=== PATIENT | female | born 1995 | race Caucasian/White ===

== ENCOUNTER 2024-12-16 12:08 | Observation (INO) | payer OTHER, SELFPAY ==
--- OUTSIDE RECORDS SUMMARY | 2024-12-16 12:25 | XMS_ITS | Clinical Summary ---
Author Organization [facility] Address [address] [place] [id number] Care Team Providers Care Regulatory Affairs Intern Name Role Phone Deanna Vasquez MD Primary Care Provider Allergies Active Allergy Reactions Criticality Noted Date Comments Diclofenac GI Upset 10/28/2018 Sumatriptan GI Upset 10/28/2018 Paroxetine Hives 10/28/2018 Tramadol GI Upset 10/28/2018 Medications vitamin 27-1 MG Tab tablet Take 1 tablet by mouth daily. Active ranitidine 150 MG tablet Take 150 mg by mouth 2 (two) times daily. 11/29/19 25 Discontinu ed(Error) Active Problems Estimated Date of Delivery Comme nts Yes 02/01/2025 No known active problems Encounters Date Type Department Care Team Description 11/28/2024 6:49 PM CDT - 11/28/2024 9:48 PM CDT Hospital Encounter [facility] [address] [facility] [place] [address] Karley Cameron MD Contractions Discharge Disposition: Home or Self Care (Routine Discharge) 11/28/2024 Travel from Last 3 Months Family History Medical History Relation Comments Lung Cancer Maternal Grandfather Breast Cancer Maternal Grandmother Cancer Mother Relation Status Comments Maternal Grandfather Maternal Grandmother Mother Social History Tobacco Use Types Packs/Day Years Used Date Smoking Tobacco: Every Day Cigarettes Smokeless Tobacco: Never Tobacco Cessation:Ready to Q uit: Not Asked; Counseling Given: Not Answered Comments:STATES THAT SHE DOESN'T SMOKE A FULL CIGARETTE A DAY Alcohol Use Standard Drinks/Week Comments No 0 (1 standard drink = 0.6 oz pur e alcohol) AUDIT-C Answer Date Recorded Frequency of Alcohol Consumption Never 10/28/2018 Average Number of Drinks Not on file 019 Frequency of Binge Drinking Not on file 10/19 Estimated Date of Delivery Comme nts Yes 02/01/2025 Sex and Gender Information Value Date Recorded Sex Assigned at Female 11/28/2024 9:52 PM CDT Legal Sex Female 9:44 AM CDT Gender Identity Not on file Sexual Orientation Not on file Last Filed Vital Signs Vital Sign Reading Time Taken Comments Blood Pressure 107/55 11/28/2024 7:13 PM CDT Pulse 63 11/28/2024 7:50 PM CDT Temperature 37.1 C (98.8 F) 11/28/2024 7:49 PM CDT Respiratory Rate 18 11/28/2024 7:48 PM CDT Oxygen Saturation 99% 11/28/2024 7:50 PM CDT Inhaled Oxygen Concentration - - Weight 53.1 kg (117 lb) 10/28/2018 3:00 AM CDT Height 162.6 cm (5' 4) 10/28/2018 3:00 AM CDT Body Mass Index 20.08 10/28/2018 3:00 AM CDT Plan of Treatment Health Maintenance Due Date Last Done Comments Cervical Cancer Screening Pap Smear (Age 21 to 29) Every 3 Years 1996 Cervical Cancer Screening 1996 Annual Physical 1999 Hepatitis C 2014 Pneumococcal Vaccine: Pediatrics (0 to 5 Years) and At-Risk Patients (6 to 49 Years) (1 of 2 - PCV) 2015 COVID-19 Vaccine ( season) 2024 DTaP, Tdap and Td Vaccines (5 - Td or Tdap) 03/12/2029 03/12/2019, 08/09/2008, 12/30/2001, Additional history exists Hepatitis B Vaccines Completed 1996, 1996, 1996 HPV Vaccines Completed 08/02/2009, 06/2008, 12/23/2008 Meningococcal Vaccine Aged Out 08/02/2009 No kady toi eligible based on patient's age to complete this topic Meningococcal B Vaccine Aged Out No l onger eligible based on patient's age to complete this topic RSV Immunization or 60+ Years (No Doses Required) Completed RSV Immunizations Under 20 Months Aged Out No longer eligible based on patient's age to complete this topic Procedures Procedure Name Priority Date/Time Associated Diagnosis Comments PLACENTAL ALPHA MICROGLOBULIN-1 STAT 11/28/2024 7:05 PM CDT Premature rupture of membranes (HHS/HCC) HC URINALYSIS AUTO W/MICRO STAT 11/28/2024 7:05 PM CDT Premature rupture of membranes (HHS/HCC) from Last 3 Months Results * PLACENTAL ALPHA MICROGLOBULIN-1 (11/28/2024 7:05 PM CDT) RUPTURE OF MEMBRANES NEGATIVE 11/28/2024 7:42 PM CDT [facility] VAGINAL STRUCTURE / Unknown 11/28/2024 7:05 PM CDT us Karley Cameron MD BODY FLUIDS AND STOOLS ORDERAB LES Final Result [facility] [address] [place] [address], * URINALYSIS (11/28/2024 7:05 PM CDT) COLOR (U) YELLOW 11/28/2024 7:30 PM CDT [facility] TRANSPARENCY CLEAR 11/28/2024 7:30 PM CDT [facility] SPECIFIC GRAVITY (U) 1.010 1.000 - 1.025 11/28/2024 7:30 PM CDT [facility] U PH 7.0 5.0 - 8.0 11/28/2024 7:30 PM CDT [facility] LEUKOCYTES (U) NEGATIVE NEGATIVE 11/28/2024 7:30 PM CDT [facility] NITRITES NEGATIVE NEGATIVE 11/28/2024 7:30 PM CDT [facility] PROTEIN RANDOM (U) NEGATIVE NEGATIVE 11/28/2024 7:30 PM CDT [facility] GLUCOSE (U) NEGATIVE NEGATIVE 11/28/2024 7:30 PM CDT [facility] KETONES MG/DL (U) NEGATIVE NEGATIVE 11/28/2024 7:30 PM CDT [facility] UROBILINOGEN 0.2 <1.0 EU/DL 11/28/2024 7:30 PM CDT [facility] BILIRUBIN (U) NEGATIVE NEGATIVE 11/28/2024 7:30 PM CDT [facility] BLOOD (U) NEGATIVE NEGATIVE 11/28/2024 7:30 PM CDT [facility] WBC/HPF 0-5 0 - 5 /HPF 11/28/2024 7:30 PM CDT [facility] RBC/HPF 0-5 0 - 5 /HPF 11/28/2024 7:30 PM CDT [facility] URINE SPECIMEN OBTAINED BY CLEAN CATCH PROCEDURE / Unknown 11/28/2024 7:05 PM CDT Karley Cameron MD URINE ORDERABLES Final Result [facility] [address] [place] [address], from Last 3 Months Insurance MEDICAID [employer] Care Teams Regulatory Affairs Intern Relationship Specialty [place] [address] [place] [address] [place] [id number] PCP - General FAMILY PRACTICE 11/28/24
--- OUTSIDE RECORDS SUMMARY | 2024-12-16 12:25 | XMS_ITS | Data Portability ---
Author Organization [facility] Address [address] [place] [address] Care Team Providers Care Field Map Technician Name Role Phone SRIRAM ROJAS Primary Care Provider [phone] Assessment Encounter Date Assessment Date Assessment LastModified by Organization Details LastModified Time 12/12/2024 12/12/2024 Patient is ___weeks . Discussed plan. [email or web address] Not available 12/12/2024 12:43:05 Plan of Treatment Reminders Order Date Submit Date Provider Last Modified By Organization Details Last Modified Time Details Appointments OB ROUTINE 2024 01:00P Enriqueta SIBLEY MD Not available Not available Not available OB ROUTINE 2024 11:15A Enriqueta SIBLEY MD Not available Not available Not available OB ROUTINE 2024 11:15A Enriqueta SIBLEY MD Not available Not available Not available U/S OB BPP 2024 09:30A M ULTRASOUND Not available Not available Not available NST 2024 10:00A M NST SCHEDULE Not available Not available Not available OB ROUTINE 2024 10:45A Enriqueta SIBLEY MD Not available Not available Not available U/S OB BPP 2024 10:00A M ULTRASOUND Not available Not available Not available NST 2024 10:30A M NST SCHEDULE Not available Not available Not available OB ROUTINE 2024 11:00A Enriqueta SIBLEY MD Not available Not available Not available U/S OB BPP 2024 10:00A M ULTRASOUND Not available Not available Not available NST 2024 10:30A M NST SCHEDULE Not available Not available Not available OB ROUTINE 2024 11:00A M NIKOLAY SIBLEY MD Not available Not available Not available U/S OB BPP 2024 10:00A M ULTRASOUND Not available Not available Not available NST 2024 10:30A M NST SCHEDULE Not available Not available Not available OB ROUTINE 2024 11:00A M NIKOLAY SIBLEY MD Not available Not available Not available Lab None recorde d. Referral None recorde d. Procedures None recorde d. Surgeries None recorde d. Imaging non-str ess test 2024 025 [email or web address] [facility], [address], [address], [place], [address], 12/04/2024 01:57:42 US, obstetr ic, biophys ical profile + non-str ess test 2024 025 [email or web address] [facility], [address], [address], [place], [address], 12/02/2024 16:20:37 US, doppler , umbilic al artery velocim etry 2024 025 [facility], [address], [address], [place], [address], 12/02/2024 17:33:38 US, obstetr ic, follow- up 2024 025 [facility], [address], [place], [address], 11/27/2024 14:17:14 US, doppler , umbilic al artery velocim etry 2024 025 EFFIE [facility], [address], [address], [place], [address], 11/27/2024 16:15:32 US, obstetr ic, [facility]ophys ical profile [facility] [address], [place], [address], 11/27/2024 16:15:41 Medication Orders None recorde d. Patient TargetsNo targets recorded. Patient InstructionsNo instructions recorded. Reason for Referral None Reported. Results Created Date Observation Date Name Description Value Unit Range Abnormal Flag Note LastModifiedBy Organization Detail LastModifiedTime 11/07/1911/06/2024 HEMAT OCRIT (HCT) HCT 38.4 % (based on docume nted legal sex) 34.0-4 5.0 Not Available [facility] (Lab) [address], [place], [address], 11/07/2024 11:47:12 11/07/19 25 11/06/2024 HEMOG LOBIN (HGB) HGB 12.5 g/dL (based on docume nted legal sex) 11.6-1 5.4 Not Available [facility] (Lab) [address], [place], [address], 11/07/2024 11:47:13 11/07/19 25 11/06/2024 GTT - GESTA AMARIS L ANGELINE Cano, ACOG OB glucose, 1 hour screen 100 mg/dL 70-135 Not Available [facility] (Lab) [address] [place], [address], 11/07/2024 11:47:13 11/07/19 25 11/06/2024 HIV 1/2 ANTIG EN/AN TIBOD Y, REFLE X CONFI RMATI ON HIV antigen/anti body Nonrea ctive nonrea ctive HIV-1 antig en and HIV-1 /HIV- 2 antib odies were not detec calvin. No labor atory evide nce of HIV infec tion. Not Available [facility] (Lab) [address], [place], [address], 11/07/2024 11:47:14 11/07/19 25 11/06/2024 RPR SCREE N, REFLE X TITER /CONF IRMAT ION RPR qualitative Nonrea ctive nonrea ctive Not Available [facility] (Lab) [address], [place], [address], 11/07/2024 11:47:14 11/07/19 25 11/06/2024 US, obste tric, follo w-up No observ ation [email or web address] [address], [place], [address], 11/06/2024 18:46:07 11/07/19 25 11/06/2024 US, obste tric, follo w-up No observ ation record ed. [email or web address] [address], [place], [address], 11/11/2024 15:08:29 11/28/19 25 11/27/2024 US, obste tric, follo w-up No observ ation record ed. [address], [place], [address], 11/27/2024 16:15:20 11/28/19 25 11/27/2024 US, doppl er, umbil ical arter y veloc imetr y No observ ation record ed. [email or web address] [facility] [address], [place], [address], 11/27/2024 16:15:33 11/28/19 25 11/27/2024 US, obste tric, bioph ysica l profi le No observ ation record ed. [email or web address]30 [facility] [address], [place], [address], 11/27/2024 16:15:42 11/28/19 25 11/27/2024 US, obste tric, follo w-up No observ ation record ed. [email or web address] [address], [place], [address], 12/05/2024 15:41:42 12/03/19 25 12/02/2024 US, obste tric, bioph ysica l profi le + non-s tress test No observ ation record ed. [email or web address] [facility] [address], [place], [address], 12/02/2024 17:33:28 12/03/19 25 12/02/2024 US, doppl er, umbil ical arter y veloc imetr y No observ ation record ed. [email or web address] [facility] [address], [place], [address], 12/02/2024 17:33:38 12/03/19 25 12/02/2024 US, obste tric, bioph ysica l profi le + non-s tress test No observ ation record ed. [email or web address] [facility] [address], [place], [address], 12/02/2024 23:10:38 12/04/19 25 12/03/2024 non-s tress test No observ ation record ed. [facility] [address], [place], [address], 12/06/2024 10:55:42 12/06/19 25 12/05/2024 US, obste tric No observ ation record ed. [email or web address] [facility] [address] [place], [address], 12/06/2024 14:21:33 12/13/19 25 12/12/2024 US, obste tric, follo w-up No observ ation record ed. [email or web address] [facility] [address] [place], [address], 12/16/2024 09:21:12 12/16/19 25 12/12/2024 imagi ng/di agnos tic resul t No observ ation record ed. [facility] [place] [address] [place], [address], 12/15/2024 14:09:40 12/16/1912/12/2024 imagi ng/di agnos tic resul t No observ ation record ed. [facility] [address] [place], [address], 12/16/2024 08:11:49 12/16/1912/12/2024 imagi ng/di agnos tic resul t No observ ation record ed. [facility] [address] [place], [address], 12/15/2024 14:09:40 Result Notes None recorded. Problems Name Problem SNOMED Code Status Onset Date Resolution Date Notes Provider Name and Address Organization Details Recorded Time 33298832 Active 2024 Irma Mon [facility] 15:26:12 growth restriction 12889759 Active 2024 AC 5% [facility] referral faxed 11/28 Tiffanie Au [facility] 11:46:09 Problem Notes None recorded. Medical Equipment None Reported. Allergies Allergen ID Allergen Name Allergen Category Reaction Reaction Severity Criticality Documentation Date Start Date Code Code System Note Provider Name and Address Organization Details Recorded Time 06446 tramadol medicatio n nausea moderate Not available 06/23/2024 35051 RxNorm Irma Mon [facility] 15:33:03 68045 Paxil medicatio n hives moderate Not available 06/23/2024 30393 8 RxNorm Irma Mon [facility] 15:33:03 Medications Name Sig Start Date Stop Date Status Note LastModified by Organization Details LastModified Time azithromyci n 250 mg tablet 10/09 completed Not Available Not Available Not Available prednisone 20 mg tablet 10/09 completed Not Available Not Available Not Available cyanocobala min (vit B-12) 1,000 mcg/mL injection solution INJECT 1 (ONE) MILLILITE R MONTHLY 10/09 completed Not Available Not Available Not Available + Iron 06/23 completed Not Available Not Available Not Available Plus with Iron 11/06 completed Not Available Not Available Not Available M- Plus 27 mg iron-1 mg tablet TAKE 1 TABLET BY MOUTH EVERY DAY active Not Available Not Available No t Available Vitals Date Recorded Body height Body mass index (BMI) Body weight Body height Systolic And Diastolic Provider Name and Address Organization Details Last Updated DateTime 12/02/2024 160.02 cm 20 kg/m2 29492.94 g 160.02 cm 97/60 mm[Hg] ROBBIE Kathrin [facility] 17:03:05 Date Recorded Body weight Systolic And Diastolic Provider Name and Address Organization Details Last Updated DateTime 12/12/2024 73458.94014 g 111/65 mm[Hg] Tenisha Rudy [facility] 12/12/2024 12:43:42 Social History Question Answer Notes LastModified by Organizat ion Details LastModified Time Do You Have An Advance Directive? No [email or web address] Information n ot available 06/23/2024 Are You Blind Or Do You Have Difficulty Seeing? No [email or web address] Information not available 06/23/2024 What Is Your Level Of Caffeine Consumption? Moderate [email or web address] Information not available 06/23/2024 How Much Tobacco Do You Chew? None [email or web address] Information not available 06/23/2024 In The 14 Days Before Symptom Onset, Have You Had Close Contact With A Laboratory-confirme d COVID-19 While That Case Was Ill? No [email or web address] Information n ot available 06/23/2024 In The 14 Days Before Symptom Onset, Have You Had Close Contact With A Person Who Is Under Investigation For COVID-19 While That Person Was Ill? No [email or web address] Information not available 06/23/2024 Have You Been To An Area Known To Be High Risk For COVID-19? No [email or web address] Information not available 06/23/2024 Are You Deaf Or Do You Have Serious Difficulty Hearing? No [email or web address] Information not available 06/23/2024 What Type Of Diet Are You Following? REGULAR [email or web address] Information n ot available 06/23/2024 What Is The Highest Grade Or Level Of School You Have Completed Or The Highest Degree You Have Received? [id number] [email or web address] Information not available 06/23/2024 Are There Any Guns Present In Your Home? Yes Information not available 06/23/2024 Do You Use Protection During Sex? No Information not available 06/23/2024 Do You Use Your Seat Belt Or Car Seat Routinely? Yes [email or web address] Information not available 06/23/2024 Do You Have Smoke And Carbon Monoxide Detectors In Your Home? Yes Information not available 06/23/2024 At What Age Did You Start Smoking Tobacco? 15 [email or web address] Information not available 06/23/2024 How Much Tobacco Do You Smoke? 0.25 PPD [email or web address] Information not available 06/23/2024 Do You Use Sunscreen Routinely? No [email or web address] Information not available 06/23/2024 Have You Used IV Drugs? No [email or web address] Information not available 06/23/2024 Sex: Unknown Functional Status Question Answer Note LastModified by Organizat ion Details LastModified Time Do you use any illicit or recreational drugs? No [email or web address] Information not available 06/23/2024 What is your level of alcohol consumption? None Information not available 06/23/2024 Are you able to walk? YESWOREST [email or web address] Information not available 06/23/2024 What is your occupation? [employer] [email or web address] Information not available 06/23/2024 What is your exercise level? Moderate [email or web address] Information not available 06/23/2024 Mental Status Question Answer Note LastModified by Organization D etails LastModified Time Do you feel stressed (tense, restless, nervous, or anxious, or unable to sleep at night)? [id number] [email or web address] Information not available 06/23/2024 Family History Relationship Description Onset Age of this Age Resolved Age Notes LastModified by Organization Details LastModified Time Unspecified Relation Family history unknown [email or web address] Not available 07/02/ 2025 13:33:57 Mother Asthma [email or web address] Not available 06/23/2024 15:33:29 Paternal Grandfather Diabetes mellitus Not available 2024 15:33:29 Father Anxiety disorder [email or web address] Not available 2024 15:33:29 Medical History Condition Response Anxiety Disorder Y Allergies (Food, seasonal, environmental ) Y Other Y Headaches Y Asthma Y Gynecological History Statement/Question Response Abnormal Pap N Flow Moderate Date of LMP 04/27/2024 On BCP's at Conception? N N Was last menstrual period normal Y STIs/STDs N HPV Vaccine N Duration of Flow (days) 5 Current Control Method Age at First Child 23 Are cycles usually normal N Frequency of Cycle (Q days) 29 Sexually Active? Y Menses Monthly Y Age of first menstrual cycle 14 Date of Last Pap Smear Sexual Problems? N LMP Approximate N Obstetrics History GPAL:G 3 P 1 0 1 1 Type Value Full Term 1 Spontaneous 1 Living 1 Total 3 Past Encounters Encounter ID Performer Location Encounter Start Date Encounter Closed Date Diagnosis/Indication Diagnosis SNOMED-CT Code Diagnosis ICD10 Code Diagnosis Note [id number] NIKOLAY SIBLEY MD [facility] [address],[facility] [place] [address] 06/23/2024 15:31:09 06/23/2024 17:01:08 test positive 317892905 Z32.01 1. Exam today within normal limits.2. Ultrasound today confirms GA and viability. EDC . GC/Clamydi a testing done: will f/u as indicated. 4. ACOG guidelines and plan of care for reviewed with patient. All questions answered.5 . Return to office at 12 weeks for new OB visit6. Will need new OB labs at next visit.7. Genetic screening: desires. [id number] NIKOLAY SIBLEY MD [facility] [address],[facility] [place] [address] 06/23/2024 15:32:41 06/23/2024 16:23:07 [id number] Ortega Quinones MD [facility] [address],[facility] [place] [address] 07/22/2024 14:15:29 07/22/2024 14:52:29 screening 585494613 Z36.82 Z3A.12 [id number] MD Annalisa COLON [address],[place] [address] 07/22/2024 14:15:52 07/22/2024 15:53:54 Routine care 990968281 Z34.91 [id number] MD Annalisa COLON [address],[place] [address] 08/19/2024 15:06:52 08/19/2024 15:47:51 Routine care 267102785 Z34.91 [id number] MD Annalisa Lynn [address],[place] [address] 10/09/2024 09:51:12 10/09/2024 11:55:05 Ultrasound scan - obstetric 513781072 Z36.3 Z3A.23 [id number] MD Annalisa Lynn [address],[place] [address] 10/09/2024 09:51:31 10/09/2024 12:11:24 care status 937228814 Z34.82 [id number] MD Annalisa Lynn [address],[place] [address] 11/06/2024 10:53:08 11/06/2024 11:46:34 anatomy study 879935110 Z36.2 Z3A.27 [id number] MD Annalisa Lynn [address],[place] [address] 11/06/2024 10:54:23 11/06/2024 12:50:41 care status 854661785 Z34.82 [id number] MD Annalisa COLON [address],[place] [address] 11/19/2024 13:33:52 11/19/2024 14:42:52 care status 424732124 Z34.83 [id number] MD Annalisa COLON [address],[place] [address] 11/27/2024 11:19:41 11/27/2024 12:19:29 Follow-up encounter 604342750 Z36.2 O36.5930 Z3A.30 [id number] NIKOLAY SIBLEY MD [facility] [address],[place] [address] 12/02/2024 15:20:57 12/02/2024 16:10:51 Poor growth affecting management 166075070 O36.5990 Z3A.31 [id number] NIKOLAY SIBLEY MD [facility] [address],[place] [address] 12/02/2024 15:21:14 12/03/2024 12:14:45 growth restriction 40814472 O36.5990 [id number] NIKOLAY SIBLEY MD [facility] [address],[place] [address] 12/02/2024 15:21:27 12/02/2024 17:56:11 growth restriction 90809340 O36.5990 Gestation period, 31 weeks 06493533 Z3A.31 [id number] Ortega Quinones MD [facility] [address],[place] [address] 12/12/2024 12:22:04 12/12/2024 14:32:02 care status 208230340 Z34.83 Health Concerns Section Related Observation LastModified by Organization Detai ls LastModified Time None Recorded Concern Status LastModified by Organization Details LastModified Time None Recorded Advance Directives Directive N: Payers Insurance Date Sequence Insurance Name Policy Number Policy Maloney Covered Member ID Maloney Member ID Guarantor Name 12/12/2024 1 [facility] A[facility] (POS II) Gian Mckeon [id number] Fara Mckeon OBGyn Episode Ob Episode Information Episode Created Date Number of Fetuses Patient Bloodtype Patient rh Status Prepregnancy Weight lbs Domestic Partner Domestic Partner Phone Father Name 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 06/23/19 25 1 CLOSED Fetus Data First Name Last Name Admitted to NICU Weight (g) Sex Living Outcome Pediatric Complications Fetus ID Race Codes Race Delivery Type F Full Term [id number] Vaginal Delivery Wili Calculation Initial Wili Date Initial Exam Date Initial Exam Provider Initial Ultrasound Date Last Menstrual Period Date Ultra Sound Weeks Gestation 0 Eighteen To Twenty Week Wili Update Ultra Sound Date Fundal Height At Umbil Quickening Date Ultra Sound Latest Weeks Gestation Final Wili Confirmed By Final Wili Confirmed Date Final Wili Date Ultra Sound Latest Days Gestation 0 0 Menstrual History Last Menstrual Date Menses Monthly On Bcp Conception Prior Menses Frequency Hcg Plus Date Menarche Onset Age Delivery Information Delivery Date Delivery Type Labor Anesthesia Weeks Gestation Incision Type Labor Labor Length Hrs Delivered By Post Complications Tubal Sterilization Discharge Date Comments 9 Discharge Information Feeding Method Contraceptive Method Maternal HG B and HCT Levels Ob Episode Information Episode Created Date Number of Fetuses Patient Bloodtype Patient rh Status Prepregnancy Weight lbs Domestic Partner Domestic Partner Phone Father Name 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 06/23/19 25 1 CLOSED Fetus Data First Name Last Name Admitted to NICU Weight (g) Sex Living Outcome Pediatric Complications Fetus ID Race Codes Race Delivery Type , Spontane ous [id number] Wili Calculation Initial Wili Date Initial Exam Date Initial Exam Provider Initial Ultrasound Date Last Menstrual Period Date Ultra Sound Weeks Gestation 0 Eighteen To Twenty Week Wili Update Ultra Sound Date Fundal Height At Umbil Quickening Date Ultra Sound Latest Weeks Gestation Final Wili Confirmed By Final Wili Confirmed Date Final Wili Date Ultra Sound Latest Days Gestation 0 0 Menstrual History Last Menstrual Date Menses Monthly On Bcp Conception Prior Menses Frequency Hcg Plus Date Menarche Onset Age Delivery Information Delivery Date Delivery Type Labor Anesthesia Weeks Gestation Incision Type Labor Labor Length Hrs Delivered By Post Complications Tubal Sterilization Discharge Date Comments 2 Discharge Information Feeding Method Contraceptive Method Maternal HG B and HCT Levels Ob Episode Information Episode Created Date Number of Fetuses Patient Bloodtype Patient rh Status Prepregnancy Weight lbs Domestic Partner Domestic Partner Phone Father Name 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 07/23/19 25 1 O Positive 98 OPEN Fetus Data First Name Last Name Admitted to NICU Weight (g) Sex Living Outcome Pediatric Complications Fetus ID Race Codes Race Delivery Type [id number] Problems Problem Notes EIF present Problem Name Start Date End Date Resolution Snomed Code Not e growth restriction 11/28/2024 25672911 AC 5% [facility] referral faxed 11/28 Wili Calculation Initial Wili Date Initial Exam Date Initial Exam Provider Initial Ultrasound Date Last Menstrual Period Date Ultra Sound Weeks Gestation 02/01/2025 07/22/2024 06/23/2024 04/27/2024 8 Eighteen To Twenty Week Wili Update Ultra Sound Date Fundal Height At Umbil Quickening Date Ultra Sound Latest Weeks Gestation Final Wili Confirmed By Final Wili Confirmed Date Final Wili Date Ultra Sound Latest Days Gestation 10/10/19 25 23 [email or web address] 08/19/2024 02/02/20 25 4 Pre- Flowsheet Flowsheet Date 07/22/2024 Rodriguez Score Blood Edema Fundus Height Fundus Units Glucose Ketones Leukocytes Nitrite Labor Signs Protein Cervic Dilation Cervic Effacement Cervic Station Type Weight in lbs Pre/Post Dialysis Refused Weight 98.7050606100131 BP Diastolic BP Location Tested BP Systolic BP Type 70 L arm 105 sitting Fetus Heart Rate Present A 164 Fetus Movement Comments Patient presents to [facility] care. Hx of 1 , with delayed placental delivery. otherwise uncomplicated. No nausea or cramping. NT/NB wnl today, desires NIPT. Will draw today with new OB labs. RTC 4 weeks for routine care. Flowsheet Date 08/19/2024 Rodriguez Score Blood Edema Fundus Height Fundus Units Glucose Ketones Leukocytes Nitrite Labor Signs Protein Cervic Dilation Cervic Effacement Cervic Station none none Type Weight in lbs Pre/Post Dialysis Refused Weight 100.868762931179 BP Diastolic BP Location Tested BP Systolic BP Type 80 L arm 112 standing Fetus Heart Rate Present A 150 Fetus Movement A Yes Comments Doing well, good movem ent. No cramping or bleeding. Some round ligament pain. Having a girl! LR female NIPT with otherwise normal OB labs. Discussed anatomy US for next visit. RTC 4 weeks. Flowsheet Date 10/09/2024 Rodriguez Score Blood Edema Fundus Height Fundus Units Glucose Ketones Leukocytes Nitrite Labor Signs Protein Cervic Dilation Cervic Effacement Cervic Station Type Weight in lbs Pre/Post Dialysis Refused BP Diastolic BP Location Tested BP Systolic BP Type Fetus Heart Rate Present Fetus Movement Comments Flowsheet Date 10/09/2024 Rodriguez Score Blood Edema Fundus Height Fundus Units Glucose Ketones Leukocytes Nitrite Labor Signs Protein Cervic Dilation Cervic Effacement Cervic Station Type Weight in lbs Pre/Post Dialysis Refused Weight 109.443611420160 BP Diastolic BP Location Tested BP Systolic BP Type 65 102 sitting Fetus Heart Rate Present A 145 Fetus Movement A Yes Comments no complaints, no problems, routine care, no contractions, no vaginal bleeding, no loss of fluid, no cramping Flowsheet Date 11/06/2024 Rodriguez Score Blood Edema Fundus Height Fundus Units Glucose Ketones Leukocytes Nitrite Labor Signs Protein Cervic Dilation Cervic Effacement Cervic Station Type Weight in lbs Pre/Post Dialysis Refused BP Diastolic BP Location Tested BP Systolic BP Type Fetus Heart Rate Present Fetus Movement Comments Flowsheet Date 11/06/2024 Rodriguez Score Blood Edema Fundus Height Fundus Units Glucose Ketones Leukocytes Nitrite Labor Signs Protein Cervic Dilation Cervic Effacement Cervic Station Type Weight in lbs Pre/Post Dialysis Refused 110.912857172006 BP Diastolic BP Location Tested BP Systolic BP Type 71 L arm 112 sitting Fetus Heart Rate Present A 145 Fetus Movement A Yes Comments no complaints, no problems, routine care, no contractions, no vaginal bleeding, no loss of fluid, no cramping Flowsheet Date 11/19/2024 Rodriguez Score Blood Edema Fundus Height Fundus Units Glucose Ketones Leukocytes Nitrite Labor Signs Protein Cervic Dilation Cervic Effacement Cervic Station neg none Type Weight in lbs Pre/Post Dialysis Refused Weight 111.348419846603 BP Diastolic BP Location Tested BP Systolic BP Type 65 L arm 98 sitting Fetus Heart Rate Present A 140 Fetus Movement A Yes Comments Good movement. BH cont ractions. No bleeding. Repeat anatomy US next week. Passed GCT, no anemia. Discussed tdap vaccine. RTC 2 weeks. Flowsheet Date 11/27/2024 Rodriguez Score Blood Edema Fundus Height Fundus Units Glucose Ketones Leukocytes Nitrite Labor Signs Protein Cervic Dilation Cervic Effacement Cervic Station Type Weight in lbs Pre/Post Dialysis Refused BP Diastolic BP Location Tested BP Systolic BP Type Fetus Heart Rate Present Fetus Movement Comments Flowsheet Date 12/02/2024 Rodriguez Score Blood Edema Fundus Height Fundus Units Glucose Ketones Leukocytes Nitrite Labor Signs Protein Cervic Dilation Cervic Effacement Cervic Station Type Weight in lbs Pre/Post Dialysis Refused BP Diastolic BP Location Tested BP Systolic BP Type Fetus Heart Rate Present Fetus Movement Comments Flowsheet Date 12/02/2024 Rodriguez Score Blood Edema Fundus Height Fundus Units Glucose Ketones Leukocytes Nitrite Labor Signs Protein Cervic Dilation Cervic Effacement Cervic Station Type Weight in lbs Pre/Post Dialysis Refused BP Diastolic BP Location Tested BP Systolic BP Type Fetus Heart Rate Present Fetus Movement Comments Flowsheet Date 12/02/2024 Rodriguez Score Blood Edema Fundus Height Fundus Units Glucose Ketones Leukocytes Nitrite Labor Signs Protein Cervic Dilation Cervic Effacement Cervic Station neg none Type Weight in lbs Pre/Post Dialysis Refused Weight 113.105344570122 BP Diastolic BP Location Tested BP Systolic BP Type 60 L arm 97 sitting Fetus Heart Rate Present A Present Fetus Movement A Yes Comments Doing well, no issues. Irreg ular contractions. Was seen over the weekend for contractions, SVE . Now improved. BPP 10/, vertex. UADs wnl. RTC 1 week. Flowsheet Date 12/12/2024 Rodriguez Score Blood Edema Fundus Height Fundus Units Glucose Ketones Leukocytes Nitrite Labor Signs Protein Cervic Dilation Cervic Effacement Cervic Station Type Weight in lbs Pre/Post Dialysis Refused [id number] BP Diastolic BP Location Tested BP Systolic BP Type 65 L arm 111 sitting Fetus Heart Rate Present A 145 Present Fetus Movement A Yes Comments no complaints, no problems, routine care, no contractions, no vaginal bleeding, no loss of fluid, no cramping to see MFM shortly for small abdominal circumference follow-up Menstrual History Last Menstrual Date Menses Monthly On Bcp Conception Prior Menses Frequency Hcg Plus Date Menarche Onset Age 1204/27/2024 Delivery Information Delivery Date Delivery Type Labor Anesthesia Weeks Gestation Incision Type Labor Labor Length Hrs Delivered By Post Complications Tubal Sterilization Discharge Date Comments Discharge Information Feeding Method Contraceptive Method Maternal HG B and HCT Levels
--- OUTSIDE RECORDS SUMMARY | 2024-12-16 12:25 | XMS_ITS | Clinical Summary ---
Author Organization [facility] Address [address] [place] [address] Care Team Providers Care Mixer Operator Name Role Phone Unavailable Primary Care Provider Unavailabl e Source Comments [facility],non-owned Affiliates and Associated Physician Practices is amultiple site organization consisting of ambulatory clinics and hospital sitesin [place], [place], [place] and [place]. This disclosure is being madepursuant to the Care Everywhere program and may not contain all information available regarding this patient. Last updated 18.[facility] Allergies Active Allergy Reactions Criticality Noted Date Comments Paroxetine Urticaria Medium 12/01/2024 Tramadol Nausea and/or Vomiting 12/01/2024 Encounters Date Type Department Care Team Description 12/16/2024 10:30 AM CDT Hospital Encounter [facility] [address] [place], [place] [id number] Yennifer Valderrama MD 12/12/2024 12:55 PM CDT - 12/12/2024 11:59 PM CDT Hospital Encounter [facility] [address] [place] [address] Fortino Be MD Discharge Disposition: Home or Self Care 12/05/2024 11:15 AM CDT - 12/05/2024 11:59 PM CDT Hospital Encounter [facility] [address] [place] [address] Jed Kathleen MD Discharge Disposition: Home or Self Care from Last 3 Months Social History Tobacco Use Types Packs/Day Years Used Date Smoking Tobacco: Never Assessed Estimated Date of Delivery Comme nts Yes 02/01/2025 Based on last me nstrual period of 04/27/2024 Sex and Gender Information Value Date Recorded Sex Assigned at Not on file Legal Sex Female 11:12 AM CDT Gender Identity Not on file Sexual Orientation Not on file Last Filed Vital Signs Vital Sign Reading Time Taken Comments Blood Pressure 99/59 12/16/2024 11:19 AM CDT Pulse 69 12/16/2024 11:19 AM CDT Temperature - - Respiratory Rate - - Oxygen Saturation - - Inhaled Oxygen Concentration - - Weight - - Height - - Body Mass Index - - Plan of Treatment Upcoming Encounters Date Type Department Care Team (Late st Contact Info) Description 12/23/2024 9:45 AM CDT Appointment [facility] [address] [place] [address] 12/30/2024 9:45 AM CDT Appointment [facility] [address] [place] [address] Health Maintenance Due Date Last Done Comments HEPATITIS C SCREENING 05/02/2014 DTAP/TDAP/TD VACCINES (1 - Tdap) 2015 HEPATITIS B VACCINE (1 of 3 - 19+ 3-dose series) 2015 PAP SMEAR 2017 HPV VACCINE (1 - 3-dose SCDM series) 2023 COVID-19 VACCINE (1 - 2023-2 5 season) 2024 DEPRESSION SCREENING 05/21/2024 OB-TDAP CURRENT 11/02/2024 OB-RHOGAM INJECTION 11/09/2024 OB-GROUP B STREP SCREEN 12/28/2024 INFLUENZA VACCINE (#1) 2025 ZOSTER VACCINE (1 of 2) 2046 HIV SCREENING Completed 11/06/2024 OB-ONE HOUR GLUCOSE Completed 11/06/2024 HIB VACCINE Aged Out No longer eligi ble based on patient's age to complete this topic MENINGOCOCCAL (Group B) VACC INE SHARED DECISION-MAKING Aged Out No longer eligibl e based on patient's age to complete this topic MENINGOCOCCAL GROUPS A/C/Y/W VACCINE Aged Out No longer eligible b ased on patient's age to complete this topic PNEUMOCOCCAL VACCINE Aged Out No long er eligible based on patient's age to complete this topic Respiratory Syncytial Virus (RSV) Vaccine Pt: or over 60 yrs (No Doses Required) Completed Procedures Procedure Name Priority Date/Time Associated Diagnosis Comments BIOPHYSICAL PROFILE W NST Routine 12/12/2024 2:15 PM CDT Ultrasound for screening for growth restriction (HCC) 32 weeks gestation of (HCC) SONOGRAM - COMPLETE Routine 12/05/2024 1 1:32 AM CDT Encounter for anatomic survey (HCC) Ultrasound for screening for growth restriction (HCC) 31 weeks gestation of (HCC) from Last 3 Months Results * Biophysical Profile w NST (12/12/2024 2:15 PM CDT) Linked Results Indication ======== Small for dates Lab Tests Test Date Result NIPT Low risk, Female Maternal Assessment Physical Exam Height 160 cm, 5 ft 3 in. Weight 52 kg, 115 lb. Initial weight 50 kg, 111 lb. BMI 20.37 kg/m . Initial BMI 19.66 kg/m . Weight gain 2 kg, 4 lb Method ====== Transabdominal ultrasound. View: Suboptimal view: limited by position and late gestational age ========= Jensen . Number of fetuses: 1 Dating ====== Date Details Gest. age ALMA LMP 04/27/2024 Cycle: regular cycle 32 w + 5 d 02/01/2025 Stated ALMA 32 w + 5 d 02/01/2025 Previous U/S 06/23/2024 GA, GA 8 w + 2 d 32 w + 6 d 01/31/2025 Assigned dating based on the LMP, selected on 12/05/2024 32 w + 5 d 02/01/2025 General Evaluation Cardiac activity present. FHR 144 bpm. Presentation: cephalic Placenta: Placental site: anterior Amniotic fluid: Amount of AF: normal. MVP 6.5 cm. HSIMON 15.1 cm. Q1 6.5 cm, Q2 1.7 cm, Q3 3.1 cm, Q4 3.9 cm Biophysical Profile 2: breathing movements 2: Gross body movements 2: tone 2: Amniotic fluid volume NST: reactive 10/10 Biophysical profile score Non Stress Test NST interpretation: reactive. Baseline FHR 135 bpm. Baseline variability: moderate. Accelerations: present. Decelerations: present, variable. Uterine activity: present, irregular Anatomy The following structures could not be adequately visualized: Head / Neck Cranium. Lateral ventricles. Choroid plexus. Midline falx. Cavum septi pellucidi. Cerebellum. Cisterna magna. Thalami. Face Lips. Profile. Heart / Thorax Ductal arch view. Abdomen Cord insertion. Spine Cervical spine. Thoracic spine. Lumbar spine. Sacral spine. Extremities / Skeleton Arms. Feet. Left leg. The following structures were documented previously: Face Nose. Nasal bone. Orbits. Heart / Thorax 4-chamber view. RVOT view. LVOT view. 3-vessel view. 0-fsedcv-pnupvzg view. Situs. Aortic arch view. Bicaval view. Great vessels. Right lung. Left lung. Diaphragm. Abdomen Stomach. Kidneys. Bladder. Bowel. Genitals. Extremities / Skeleton Hands. Legs. Right leg. Doppler Umbilical Artery: PI 1.21 94% Tiburcio S / D 3.59 91% Tiburcio Mid Cerebral Artery: PI 1.53 3% Ebbing PS 36.74 cm/s PS 0.80 MoM CPR PI 1.26 <1% Ebbing Impression ========= Single, live, intrauterine at 32w 5d The amniotic fluid volume is normal. The biophysical profile is 10/10. The umbilical artery Dopplers is normal (<95th percentile) The MCA Dopplers is low (<5th percentile), consisent with cephalization of flow. Comment ======== ultrasound alone cannot detect all structural, genetic, or functional , placental, or maternal abnormalities Follow-up ======== Continue weekly BPP with 2x weekly NST Repeat growth in 2 weeks Coding ====== Diagnoses O36.5930: Maternal care for other known or suspected poor growth O36.5930: Maternal care for other known or suspected poor growth Procedures 54734: US Uterus Limited 58291: Umbilical Doppler 37131: MCA Doppler [place] PACS Anatomical Region Laterality Modality Other 12/12/2024 2:15 PM CDT R Reyes Quinones MD [facility] ORDERABLES Edited Result - Final * Sonogram - Complete (12/05/2024 11:32 AM CDT) Linked Results Indication ======== Small for dates Lab Tests Test Date Result NIPT Low risk, Female Maternal Assessment Physical Exam Height 160 cm, 5 ft 3 in. Weight 51 kg, 112 lb. Initial weight 50 kg, 111 lb. BMI 19.84 kg/m . Initial BMI 19.66 kg/m . Weight gain 0 kg, 1 lb Method ====== Transabdominal ultrasound. View: Suboptimal view: limited by late gestational age ========= Jensen . Number of fetuses: 1 Dating ====== Date Details Gest. age ALMA LMP 04/27/2024 Cycle: regular cycle 31 w + 5 d 02/01/2025 Stated ALMA 31 w + 5 d 02/01/2025 Previous U/S 06/23/2024 GA, GA 8 w + 2 d 31 w + 6 d 01/31/2025 Assigned dating based on the LMP, selected on 12/05/2024 31 w + 5 d 02/01/2025 General Evaluation Cardiac activity present. FHR 151 bpm. Presentation: cephalic Placenta: Placental site: anterior Umbilical cord: Cord vessels: 3 vessel cord. Insertion site: normal insertion Amniotic Fluid Assessment ==== Amount of AF: normal, normal MVP 4.4 cm. SHIMON 14.2 cm. Q1 4.4 cm, Q2 4.3 cm, Q3 2.4 cm, Q4 3.2 cm Biophysical Profile 2: breathing movements 2: Gross body movements 2: tone 2: Amniotic fluid volume 12/26 Biophysical profile score Biometry BPD 74.7 mm 30w 0d 5% Hadlock HC 273.7 mm 29w 6d <1% Hadlock AC 256.7 mm 29w 6d 6% Hadlock Femur 60.9 mm 31w 4d 34% Hadlock Humerus 53.7 mm 31w 2d 38% April HC / AC 1.07 Weight Calculation: EFW 1,572 g 10% Hadlock EFW (lb,oz) 3 lb 7 oz EFW by Hadlock (TTI-TF-LD-FL) less than expected Growth Overview Exam date GA BPD (mm) HC (mm) AC (mm) FL (mm) HL (mm) EFW (g) 12/05/2024 31w 5d 74.7 5% 273.7 <1% 256.7 6% 60.9 34% 53.7 38% 1572 10% Anatomy The following structures appear normal: Face Nose. Nasal bone. Orbits. Heart / Thorax 4-chamber view. RVOT view. LVOT view. 3-vessel view. 9-hpoero-utdlphz view. Situs. Aortic arch view. Bicaval view. Great vessels. Right lung. Left lung. Diaphragm. Abdomen Stomach. Kidneys. Bladder. Bowel. Genitals. Extremities / Skeleton Arms. Right leg. The following structures could not be adequately visualized: Head / Neck Cranium. Lateral ventricles. Choroid plexus. Midline falx. Cavum septi pellucidi. Cerebellum. Cisterna magna. Thalami. Face Lips. Profile. Heart / Thorax Ductal arch view. Abdomen Cord insertion. Spine Cervical spine. Thoracic spine. Lumbar spine. Sacral spine. Extremities / Skeleton Hands. Feet. Left leg. Doppler Umbilical Artery: abnormal, elevated PI 1.40 >99% Tiburcio S / D 4.30 99% Tiburcio Mid Cerebral Artery: normal PI 2.21 56% Ebbing PS 47.00 cm/s PS 1.07 MoM CPR PI 1.58 4% Ebbing Maternal Structures Right Ovary Not visualized Left Ovary Not visualized Impression ========= Single, live, intrauterine at 31w 5d The size is at the 10th% with AC < 10th% The amniotic fluid volume is normal No malformations were seen within the limitations of ultrasound UA Dopplers show mildly elevated placental vascular resistance MCA Dopplers show no brain-sparing Biophysical profile (BPP) is normal (12/26) Comment ======== U/S cannot detect all structural, genetic, or functional , placental, or maternal abnormalities. Follow-up ======== Next week start 2x-weekly NST and 1x-weekly BPP + Dopplers Repeat growth in 3 weeks Coding ====== Diagnoses O36.5930: Maternal care for other known or suspected poor growth Procedures 62864: Umbilical Doppler 05283: MCA Doppler 55643: Biophysical Profile W/O NST 90316: US Preg [facility]terus [facility] Anatomical Region Laterality Modality Other 12/05/2024 11:3 2 AM CDT R Reyes Quinones MD [facility] ORDERABLES Edited Result - Final from Last 3 Months Insurance [facility]
--- OUTSIDE RECORDS SUMMARY | 2024-12-16 12:25 | XMS_ITS | Encounter Summary ---
Author Organization [facility] Address [address] [place] [address] Care Team Providers Care Inventory Auditor Name Role Phone Deanna Vasquez MD Primary Care Provider [phone] Encounter Details Date Type Department Care Team (Late st Contact Info) Description 10/26/2018 Abstract SFL CONVERSION [address] [place] [address] , Generic MD Lorna Social History Tobacco Use Types Packs/Day Years Used Date Smoking Tobacco: Never Assessed AUDIT-C Answer Date Recorded Frequency of Alcohol Consumption Never 10/28/2018 Average Number of Drinks Not on file 019 Frequency of Binge Drinking Not on file 10/19 Comments Unknown Sex and Gender Information Value Date Recorded Sex Assigned at Female 11/28/2024 9:52 PM CDT Legal Sex Female 9:44 AM CDT Gender Identity Not on file Sexual Orientation Not on file documented as of this encounter Functional Status documented as of this encounter Mental Status * Question Answer Entry Date Author Status Because of a physical, mental, or emotional condition, do you have serious difficulty concentrating, remembering, or making decisions? No 10/28/2018 4:00 AM CDT Sandra Marrufo R N Active documented in this encounter Plan of Treatment Not on file documented as of this encounter Visit Diagnoses Not on filedocumented in this encounter Care Teams Inventory Auditor Relationship Specialty Start Date End Date Deanna Vasquez MD [address] [place] [address] PCP - General FAMILY PRACTICE 11/28/24 documented as of this encounter
--- OUTSIDE RECORDS SUMMARY | 2024-12-16 12:25 | XMS_ITS | Encounter Summary ---
Author Organization [facility] Address [address] [place] [address] [place] [address] Care Team Providers Care Diving Judge Name Role Phone Unavailable Primary Care Provider Unavailabl e Reason for Referral * (Routine) - Open Specialty Diagnoses / Procedures Referred By Contac t Referred To Contact Diagnoses Ultrasound for screening for growth restriction (HCC) 32 weeks gestation of (HCC) Poor growth complicating , antepartum, first trimester, not applicable or unspecified fetus (HCC) Procedures Biophysical Profile w NST Roseann Quinones MD [address] [place] [address] Phone: tel: fax: Referral ID Status Reason Start Date Expiration Date Visits Re quested Visits Authorized [id number] Open 12/08/2024 12/08/2025 6 6 Reason for Visit * Reason Comments Ultrasound Non-stress Test * (Routine) - Open Specialty Diagnoses / Procedures Referred By Contac t Referred To Contact Diagnoses Ultrasound for screening for growth restriction (HCC) 32 weeks gestation of (HCC) Poor growth complicating , antepartum, first trimester, not applicable or unspecified fetus (HCC) Procedures Biophysical Profile w NST Roseann Quinones MD [address] [place] [address] Phone: tel: fax: Referral ID Status Reason Start Date Expiration Date Visits Re quested Visits Authorized [id number] Open 12/08/2024 12/08/2025 6 6 Encounter Details Date Type Department Care Team (Late st Contact Info) Description 12/16/2024 10:30 AM CDT Hospital Encounter [facility] [address] [place], [place] [id number] Yennifer Valderrama MD [address] [address] Social History Tobacco Use Types Packs/Day Years Used Date Smoking Tobacco: Never Assessed Estimated Date of Delivery Comme nts Yes 02/01/2025 Based on last me nstrual period of 04/27/2024 Sex and Gender Information Value Date Recorded Sex Assigned at Not on file Legal Sex Female 11:12 AM CDT Gender Identity Not on file Sexual Orientation Not on file documented as of this encounter Last Filed Vital Signs Vital Sign Reading Time Taken Comments Blood Pressure 99/59 12/16/2024 11:19 AM CDT Pulse 69 12/16/2024 11:19 AM CDT Temperature - - Respiratory Rate - - Oxygen Saturation - - Inhaled Oxygen Concentration - - Weight - - Height - - Body Mass Index - - documented in this encounter Progress Notes * Karen Lakhani RN - 12/16/2024 11:30 AM CDT Patient here today for NST/BPP performed at GA 33w2d for SGA . Patient reports positive movement. Denies cramping, vaginal bleeding, and leakage of fluid. Patient denies headache, epigastric pain and visual changes. Patient states, I might be having some contractions when she is sitting upright as baby is squished. Patient reports when she lays down or stands up they go away. She is unsure if contractions or activity as she reports her baby is always very active. Patient reports she has full bladder just at end of NST. Patient removed to use restroom then sent to ultrasound. NST remote reviewed MFM would like patient to go to local L&D for PTL evaluation and continuousmonitoring for a couple hours. Discussed with patient and instructed her to go directly to hospital. Patient asked about stopping by OB office first. Encouraged patient to go immediately to [facility] for evaluation. Patient reports she has OB appt with Dr. Crews today around 1PM. LM for staff at Dr. Crews's office letting them know we are sending patient to [facility] for evaluation/monitoring. Spoke with ROSEMARIE Love at [facility] and notified her patient will be coming over for evaluation. Karen Lakhani, ROSEMARIE 12/16/2024 11:34 AM documented in this encounter Plan of Treatment Upcoming Encounters Date Type Department Care Team (Late st Contact Info) Description 12/23/2024 9:45 AM CDT Appointment [facility] [address] [place] [address] 12/30/2024 9:45 AM CDT Appointment [facility] [address] [place] [address] Scheduled Orders Name Type Priority Associated Diagnoses Orde r Schedule Biophysical Profile w NST MATRNL MED Routine Ultrasound for screening for growth restriction (HCC) 32 weeks gestation of (HCC) 1 Occurrences starting 12/16/2024 until 12/16/2024 documented as of this encounter Visit Diagnoses Diagnosis Ultrasound for screening for growth restriction (HCC)- Primary screening for growth retardation using ultrasonics 33 weeks gestation of (HCC) state, incidental Poor growth affecting management of mother in third trimester, single or unspecified fetus (HCC) 32 weeks gestation of (HCC) state, incidental documented in this encounter
--- NOTE | 2024-12-16 12:39 | OBADM ---
This patient, Fara Mckeon, admitted to the OB room OB Post 117 for observation. Patient/family oriented to hospital policies and general routines including ID bracelet, bed and alarms, visiting hours, pain management, procedures, bathroom and other care routines, personal items, smoking policy, room service/diet, and visiting hours. Patient/Family are encouraged to report perceived risks to care and to ask questions if they do not understand what they are told or what they should do.
[2024-12-16] MEDS: FLUCONAZOLE 150 MG TABLET PO (14:31)
--- NOTE | 2024-12-16 14:35 | PC.NURSE ---
1300: FHR 135, accels present, no decels, moderate UC: 1-3.5 min, 41-121 sec, mild, soft to palpation 1330: FHR 140 accesl present, no decels, moderate UC: 2-5 min, 39-95 sec, mild, soft to palpation 1400: FHR 135 accels present, 1 variable, moderate UC: 2-3 min, 54-116 sec, mild, soft to palpation 1430: FHR 135 accels present, no decels, moderate UC: 1.5-4 min, 30-95 sevs, mild, soft to palpation
--- NOTE | 2024-12-19 10:33 | PM.OBTRLD ---
OB - Triage/Final Diagnosis Visit Information Comments/Additional reasons for admission: I have assessed the risk for this patient, Fara Mckeon, and determined that she would benefit from observation care. Final Diagnosis (1) Irregular contractions: Code(s): O47.9 - False labor, unspecified Status: Acute (2) Non-reassuring electronic monitoring tracing: Code(s): O36.8390 - Maternal care for abnormalities of the heart rate or rhythm, unspecified trimester, not applicable or unspecified Status: Acute
== END 2024-12-16 14:45 | disposition home or self-care (01) ==
PROVIDERS: Admitting Provider Obstetrics & Gynecology; Visit Provider Obstetrics & Gynecology
DX: O47.03 False labor before 37 completed weeks of gestation, third trimester (principal); O36.8330 Maternal care for abnormalities of the fetal heart rate or rhythm, third trimester, not applicable or unspecified; Z3A.33 33 weeks gestation of pregnancy
CPT/HCPCS: A9270; G0378; G0379

== ENCOUNTER 2024-12-29 13:14 | Observation (INO) | payer OTHER, SELFPAY ==
--- OUTSIDE RECORDS SUMMARY | 2024-12-29 13:40 | XMS_ITS | Clinical Summary ---
Author Organization [facility] Address [address] [place] [address] Care Team Providers Care Marble Rubber Name Role Phone Deanna Vasquez MD Primary Care Provider [phone] Allergies Active Allergy Reactions Criticality Noted Date Comments Diclofenac GI Upset 10/28/2018 Sumatriptan GI Upset 10/28/2018 Paroxetine Hives 10/28/2018 Tramadol GI Upset 10/28/2018 Medications vitamin 27-1 MG Tab tablet Take 1 tablet by mouth daily. Active Active Problems Estimated Date of Delivery Comme nts Yes 02/01/2025 No known active problems Encounters Date Type Department Care Team Description 11/28/2024 6:49 PM CDT - 11/28/2024 9:48 PM CDT Hospital Encounter [facility] [address] [facility] [place] [address] Karley Cameron MD Contractions Discharge Disposition: Home [...] 2 - PCV) 2015 COVID-19 Vaccine ( - season) 2024 DTaP, Tdap and Td Vaccines [...] OF MEMBRANES NEGATIVE 11/28/2024 7:42 PM CDT [facility] VAGINAL STRUCTURE / Unknown 11/28/2024 7:05 PM CDT us Karley Cameron MD BODY FLUIDS AND STOOLS ORDERAB LES Final Result [facility] [address] [facility] [place] [address], * URINALYSIS (11/28/2024 7:05 PM CDT) COLOR (U) YELLOW 11/28/2024 7:30 PM CDT [facility] TRANSPARENCY CLEAR 11/28/2024 7:30 PM CDT [facility] SPECIFIC GRAVITY (U) 1.010 1.000 - 1.025 11/28/2024 7:30 PM CDT [facility] U PH 7.0 5.0 - 8.0 11/28/2024 7:30 PM CDT [facility] LEUKOCYTES (U) NEGATIVE NEGATIVE 11/28/2024 7:30 PM CDT [facility] NITRITES NEGATIVE NEGATIVE 11/28/2024 7:30 PM CDT [facility] PROTEIN RANDOM (U) NEGATIVE NEGATIVE 11/28/2024 7:30 PM CDT [facility] GLUCOSE (U) NEGATIVE NEGATIVE 11/28/2024 7:30 PM CDT [facility] KETONES MG/DL (U) NEGATIVE NEGATIVE 11/28/2024 7:30 PM CDT [facility] UROBILINOGEN 0.2 <1.0 EU/DL 11/28/2024 7:30 PM CDT [facility] BILIRUBIN (U) NEGATIVE NEGATIVE 11/28/2024 7:30 PM CDT [facility] BLOOD (U) NEGATIVE NEGATIVE 11/28/2024 7:30 PM CDT [facility] WBC/HPF 0-5 0 - 5 /HPF 11/28/2024 7:30 PM CDT [facility] RBC/HPF 0-5 0 - 5 /HPF 11/28/2024 7:30 PM CDT [facility] URINE SPECIMEN OBTAINED BY CLEAN CATCH PROCEDURE / Unknown 11/28/2024 7:05 PM CDT us Karley Cameron MD URINE ORDERABLES Final Result [facility] [address] [facility] [place] [address], from Last 3 Months Insurance [facility]ICAID [facility] Care Teams Marble Rubber Relationship Specialty Start Date End Date Deanna Vasquez MD [address] [place] [address] PCP - General FAMILY PRACTICE 11/28/24
--- OUTSIDE RECORDS SUMMARY | 2024-12-29 13:40 | XMS_ITS | Clinical Summary ---
Author Organization [facility] Address [address] [place] [address] Care Team Providers Care Jewel Stripper Name Role Phone Unavailable Primary Care Provider Unavailabl e Source Comments [facility],non-owned Affiliates and Associated Physician Practices is amultiple site organization consisting of ambulatory clinics and hospital sitesin [place], [place], [place] and [place]. This disclosure is being madepursuant to the Care Everywhere program and may not contain all information available regarding this patient. Last updated 18.[facility] Allergies Active Allergy Reactions Criticality Noted Date Comments Paroxetine Urticaria Medium 12/01/2024 Tramadol Nausea and/or Vomiting 12/01/2024 Encounters Date Type Department Care Team Description 12/23/2024 9:42 AM CDT - 12/23/2024 11:59 PM CDT Hospital Encounter [facility] [address] [place] [address] Fortino Be MD Discharge Disposition: Home or Self Care 12/16/2024 10:30 AM CDT - 12/16/2024 11:59 PM CDT Hospital Encounter [facility] [address] [place] [address] Yennifer Valderrama MD Discharge Disposition: Home or Self Care 12/12/2024 12:55 PM CDT - 12/12/2024 11:59 PM CDT Hospital Encounter [facility] [address] [place] [address] Fortino Be MD Discharge Disposition: Home or Self Care 12/05/2024 11:15 AM CDT - 12/05/2024 11:59 PM CDT Hospital Encounter [facility] Care [address] [place] [address] Jed Kathleen MD Discharge Disposition: Home or [...] Sign Reading Time Taken Comments Blood Pressure 109/68 12/23/2024 11:18 AM CDT Pulse 72 12/23/2024 11:18 AM CDT Temperature - - Respiratory Rate - - Oxygen Saturation - - Inhaled Oxygen Concentration - - Weight - - Height - - Body Mass Index - - Plan of Treatment Upcoming Encounters Date Type Department Care Team (Late st Contact Info) Description 12/30/2024 9:45 AM CDT Hospital Encounter [facility] [address] [place] [phone] Jed Kathleen MD [address] [place] [phone] 01/06/2025 7:30 AM CDT Appointment [facility] [address] [place] [address] 01/13/2025 9:45 AM CDT Appointment [facility] [address] [place] [address] 01/20/2025 10:30 AM CDT Appointment [facility] [address] [place] [address] 01/27/2025 10:30 AM CDT Appointment [facility] [address] [place] [phone] Health Maintenance Due Date Last Done Comments [...] Date/Time Associated Diagnosis Comments BIOPHYSICAL PROFILE W T Routine 12/23/2024 10:18 AM CDT Ultrasound for screening for growth restriction (HCC) 32 weeks gestation of (HCC) BIOPHYSICAL PROFILE W NST Routine 12/16/2024 11:15 AM CDT Ultrasound for screening for growth restriction (HCC) 32 weeks gestation of (HCC) BIOPHYSICAL PROFILE W NST Routine 12/12/2024 2:15 PM CDT Ultrasound for screening for growth restriction (HCC) 32 weeks gestation of (HCC) SONOGRAM - COMPLETE Routine 12/05/2024 1 1:32 AM CDT Encounter for anatomic survey (HCC) Ultrasound for screening for growth restriction (HCC) 31 weeks gestation of (HCC) from Last 3 Months Results * Biophysical Profile w NST (12/23/2024 10:18 AM CDT) Only the most recent of3 resultswithin the time period is included. Linked Results Indication ======== Poor growth (FGR) History ====== OB History 3. Para 1 [id number] Lab Tests Test Date Result NIPT Low risk, Female Maternal Assessment Physical Exam Height 160 cm, 5 ft 3 in. Weight 54 kg, 118 lb. Initial weight 44 kg, 98 lb. BMI 20.90 kg/m . Initial BMI 17.36 kg/m . Weight gain 9 kg, 20 lb Method ====== Transabdominal ultrasound. View: Sufficient ========= Jensen . Number of fetuses: 1 Dating ====== Date Details Gest. age ALMA LMP 04/27/2024 Cycle: regular cycle 34 w + 2 d 02/01/2025 Stated ALMA 34 w + 2 d 02/01/2025 Previous U/S 06/23/2024 GA, GA 8 w + 2 d 34 w + 3 d 01/31/2025 U/S 12/23/2024 based upon AC, BPD, Femur, HC 32 w + 4 d 02/13/2025 Assigned dating based on the LMP, selected on 12/05/2024 34 w + 2 d 02/01/2025 General Evaluation Cardiac activity present. FHR 130 bpm. Presentation: cephalic Placenta: Placental site: anterior Amniotic fluid: Amount of AF: normal. MVP 4.4 cm. SHIMON 11.8 cm. Q1 4.4 cm, Q2 1.9 cm, Q3 3.2 cm, Q4 2.3 cm Biometry BPD 79.0 mm 31w 5d 2% Hadlock HC 289.0 mm 31w 6d <1% Hadlock Cerebellum tr 47.4 mm 73% [place] AC 276.3 mm 31w 5d 3% Hadlock Femur 68.2 mm 35w 0d 61% Hadlock Humerus 59.0 mm 34w 1d 62% April HC / AC 1.05 Weight Calculation: EFW 2,035 g 11% Hadlock EFW (lb,oz) 4 lb 8 oz EFW by Hadlock ([id number]) overall normal range, but the AC is <10% Growth Overview Exam date GA BPD (mm) HC (mm) AC (mm) FL (mm) HL (mm) EFW (g) 12/05/2024 31w 5d 74.7 5% 273.7 <1% 256.7 6% 60.9 34% 53.7 38% 1572 10% 12/23/2024 34w 2d 79 2% 289 <1% 276.3 3% 68.2 61% 59 62% 2034 11% Anatomy The following structures appear normal: Head / Neck Cranium. Right choroid plexus. Midline falx. Cerebellum. Cisterna magna. Thalami. The following structures could not be adequately visualized: Head / Neck Lateral ventricles. Left choroid plexus. Cavum septi pellucidi. Face Lips. Profile. Abdomen Cord insertion. The following structures were documented previously: Face Nose. Nasal bone. Orbits. Heart / Thorax 4-chamber view. RVOT view. LVOT view. 3-vessel view. 3-upqcea-aqebmza view. Situs. Aortic arch view. Bicaval view. Ductal arch view. Great vessels. Right lung. Left lung. Diaphragm. Abdomen Stomach. Kidneys. Bladder. Bowel. Genitals. Spine Cervical spine. Thoracic spine. Lumbar spine. Sacral spine. Extremities / Skeleton Arms. Hands. Legs. Feet. Biophysical Profile 2: breathing movements 2: Gross body movements 2: tone 2: Amniotic fluid volume NST: reactive 10/10 Biophysical profile score Non Stress Test NST interpretation: reactive. Baseline FHR 140 bpm. Baseline variability: moderate. Accelerations: present. Decelerations: absent. Uterine activity: absent. Acoustic stimulation: no Doppler Umbilical Artery: normal PI 1.15 92% Tiburcio S / D 3.21 84% Tiburcio Mid Cerebral Artery: normal PI 2.04 52% Ebbing PS 51.05 cm/s PS 1.03 MoM Impression ========= Single, live intrauterine at 34w 2d The size is overall normal range, but the AC is <10% . The amniotic fluid volume is normal. The biophysical profile is 10/10. The umbilical artery Doppler is normal. The MCA Doppler is normal. Comment ======== ultrasound alone cannot detect all structural, genetic, or functional , placental, or maternal abnormalities Follow-up ======== Continue weekly BPP and Dopplers with 2x weekly NST Repeat growth in 2 weeks Coding ====== Diagnoses O36.5130: Maternal care for known or suspected placental insufficiency Procedures 75985: [place] [address]: Umbilical Doppler 23483: MCA Doppler 89705: Biophysical Profile W NST [employer] PACS Anatomical Region Laterality Modality Other 12/23/2024 10:1 8 AM CDT [facility] Reyes Quinones MD [facility] ORDERABLES Edited Result - Final * [...] 3 lb 7 oz EFW by Hadlock ([id number]) less than expected Growth Overview Exam date GA BPD (mm) HC (mm) AC (mm) FL (mm) HL (mm) EFW (g) 12/05/2024 31w 5d 74.7 5% 273.7 <1% 256.7 6% 60.9 34% 53.7 38% 1572 10% Anatomy The following structures appear normal: Face Nose. Nasal bone. Orbits. Heart / Thorax 4-chamber view. RVOT view. LVOT view. 3-vessel view. 4-xgaqjy-nexmbkk view. Situs. Aortic arch view. Bicaval view. [...] other known or suspected poor growth Procedures 50430: Umbilical Doppler 75318: MCA Doppler 99930: Biophysical Profile W/O NST 74727: US Preg Uterus Detailed [employer] PACS Anatomical Region Laterality Modality Other 12/05/2024 11:3 2 AM CDT R Reyes LANTIGUA ORDERABLES Edited Result - Final from Last 3 Months Insurance [facility]
--- OUTSIDE RECORDS SUMMARY | 2024-12-29 13:40 | XMS_ITS | Encounter Summary ---
Author Organization [facility] Address [address] [place] [address] Care Team Providers Care Food Safety Auditor Name Role Phone Deanna Vasquez MD Primary Care Provider [phone] Encounter Details Date Type Department Care Team (Late st Contact Info) Description 10/26/2018 Abstract SFL CONVERSION [address] [place] [address] , Generic MD Lorna Social [...] on filedocumented in this encounter Care Teams Food Safety Auditor Relationship Specialty Start Date End Date Deanna Vasquez MD [address] [place] [address] PCP - General FAMILY PRACTICE 11/28/24 documented as of this encounter
[2024-12-29 14:00] VITALS: TEMP 37.2
[2024-12-29 14:01] VITALS: BP 110/57; PULSE 67
[2024-12-29 14:03] LABS: Add Urine Microscopic? NO; Appearance Urine Clear (Clear); Glucose Urine UA Negative (Negative); Leukocyte Esterase Ur Negative LEU/UL (Negative); Nitrate Urine Negative (Negative); Specific Grav Ur 1.008 (1.001-1.035)
[2024-12-29 14:16] VITALS: BP 105/59; PULSE 65
[2024-12-29] MEDS: LACTATED RINGERS 1,000 ML 100 ML IV CONT (14:18)
[2024-12-29 14:30] VITALS: BP 108/63; PULSE 65
[2024-12-29 14:46] VITALS: BP 105/60; PULSE 62
[2024-12-29 15:06] VITALS: BMI 20.7
[2024-12-29 16:20] LABS: OBXCEM ROM Plus Negative (Negative)
--- NOTE | 2025-01-02 14:43 | P.PNOB_ITS ---
OB - Triage/Final Diagnosis Visit Information Comments/Additional reasons for admission: I have assessed the risk for this patient, Fara Montanomevrat, and determined that she would benefit from observation care. Evaluation Laboratory results: Laboratory Tests 12/29/24 12/29/24 13:53 14:03 Urine Color Yellow Urine Appearance Clear Urine pH 7.0 Ur Specific [place] 1.008 Urine Protein Negative Urine Glucose (UA) Negative Urine Ketones Negative Ur Blood (Man) Negative Urine Nitrate Negative Urine Bilirubin Negative Urine Urobilinogen 0.2 Ur Leukocyte Esterase Negative Membranes Rupture Rom plus negative Final Diagnosis (1) Irregular contractions: Code(s): O47.9 - False labor, unspecified Status: Acute
== END 2024-12-29 18:43 | disposition home or self-care (01) ==
PROVIDERS: Admitting Provider Obstetrics & Gynecology; Visit Provider Obstetrics & Gynecology
DX: O47.03 False labor before 37 completed weeks of gestation, third trimester (principal); Z3A.35 35 weeks gestation of pregnancy
CPT/HCPCS: 81003; 84112; 87086; 96360; 96361; G0378; G0379; J7120

== ENCOUNTER 2024-12-30 11:48 | Observation (INO) | payer OTHER, SELFPAY ==
[2024-12-30 12:16] VITALS: BP 103/62; PULSE 64
--- OUTSIDE RECORDS SUMMARY | 2024-12-30 12:29 | XMS_ITS | Encounter Summary ---
Author Organization [facility] Address [address] [place] [address] [place] [address] Care Team Providers Care Costumed Character Entertainer Name Role Phone Unavailable Primary Care Provider [...] NST Roseann Quinones MD [address] [place] [address] Phone: tel: fax: Referral ID Status Reason Start Date Expiration Date Visits Re quested Visits Authorized [id number] Open 12/08/2024 12/08/2025 6 6 Reason for Visit * Reason Comments Ultrasound * (Routine) - Open Specialty Diagnoses / Procedures Referred By Contac t Referred To Contact Diagnoses Ultrasound for screening for growth restriction (HCC) 32 weeks gestation of (HCC) Poor growth complicating , antepartum, first trimester, not applicable or unspecified fetus (HCC) Procedures Biophysical Profile w NST Roseann Quinones MD [address] [place] [address] Phone: tel: fax: Referral ID Status Reason Start Date Expiration Date Visits Re quested Visits Authorized [id number] Open 12/08/2024 12/08/2025 6 6 Encounter Details Date Type Department Care Team (Late st Contact Info) Description 12/30/2024 9:45 AM CDT Hospital Encounter [facility] Maternal & Care [address] [id number] Jed Kathleen MD [address] [phone] Social History Tobacco Use Types Packs/Day Years [...] Sign Reading Time Taken Comments Blood Pressure 115/66 12/30/2024 10:50 AM CDT Pulse 61 12/30/2024 10:50 AM CDT Temperature - - Respiratory Rate - - Oxygen Saturation - - Inhaled Oxygen Concentration - - Weight - - Height - - Body Mass Index - - documented in this encounter Progress Notes * Karen Lakhani RN - 12/30/2024 10:58 AM CDT Patient here today for NST/BPP performed at GA 35w2d for IUGR. Patient reports positive movement. Denies vaginal bleeding, and leakage of fluid. Patient denies headache, epigastric pain and visual changes. Patient reports she went to [facility] for neel with pelvic pressure yesterday and wasthere for 7 hours, discharged home at 8 pm after several SVE's she remained 2 cm. Patient reports contractions not painful but uncomfortable at times, varies, occasionally feels flutter in vaginal area. Reports when she went to L&D yesterday she had pelvic pressure but not today. Patient reports she does feel a lot of movement. Patient reports L&D RN told her to return for contractions every 3-6 minutes or less. Dicussed NST findings with Dr. Kathleen. Ultrasound complete, MFM reviewed. Dr. Kathleen recommended [facility] evaluation for PTL and extended monitoring. Patient and spouse verbalized understanding. Antonette at [facility] notified. Tiffanie at Dr. Crews's office notified. Karen Lakhani RN 12/30/2024 11:37 AM documented in this encounter Plan of Treatment Upcoming Encounters Date Type Department Care Team (Late st Contact Info) Description 01/06/2025 7:30 AM CDT Hospital Encounter [facility] [address] [place] [address] 01/13/2025 9:45 AM CDT Appointment [facility] [address] [place] [address] 01/20/2025 10:30 AM CDT Appointment [facility] [address] [place] [phone] 01/27/2025 10:30 AM CDT Appointment [facility] [address] [place] [phone] documented as of this encounter Procedures Procedure Name Priority Date/Time Associated Diagnosis Comments BIOPHYSICAL PROFILE W NST Routine 12/30/2024 10:32 AM CDT Ultrasound for screening for growth restriction (HCC) 32 weeks gestation of (HCC) documented in this encounter Results * Biophysical Profile w NST (12/30/2024 10:32 AM CDT) Linked Results Indication ======== Poor growth (FGR) History ====== OB History 3. Para 1 [id number] Lab Tests Test Date Result NIPT Low risk, Female Maternal Assessment Physical Exam Height 160 cm, 5 ft 3 in. Initial weight 44 kg, 98 lb. Initial BMI 17.36 kg/m Method ====== Transabdominal ultrasound. View: Sufficient ========= Jensen . Number of fetuses: 1 Dating ====== Date Details Gest. age ALMA LMP 04/27/2024 Cycle: regular cycle 35 w + 2 d 02/01/2025 Stated ALMA 35 w + 2 d 02/01/2025 Previous U/S 06/23/2024 GA, GA 8 w + 2 d 35 w + 3 d 01/31/2025 Assigned dating based on the LMP, selected on 12/05/2024 35 w + 2 d 02/01/2025 General Evaluation Cardiac activity present. FHR 139 bpm. Presentation: cephalic Placenta: Placental site: anterior Amniotic Fluid Assessment ==== Amount of AF: normal MVP 3.5 cm. SHIMON 12.1 cm. Q1 3.0 cm, Q2 3.5 cm, Q3 2.3 cm, Q4 3.3 cm Biophysical Profile 2: breathing movements 2: Gross body movements 2: tone 2: Amniotic fluid volume NST: reactive 02/27 Biophysical profile score Non Stress Test NST interpretation: reactive. Baseline FHR 130 bpm. Baseline variability: moderate. Accelerations: present Growth Overview Exam date GA BPD (mm) HC (mm) AC (mm) FL (mm) HL (mm) EFW (g) 12/05/2024 31w 5d 74.7 5% 273.7 <1% 256.7 6% 60.9 34% 53.7 38% 1572 10% 12/23/2024 34w 2d 79 2% 289 <1% 276.3 3% 68.2 61% 59 62% 2035 11% Anatomy The following structures appear normal: Abdomen Stomach. Kidneys. Bladder. Doppler Umbilical Artery: normal PI 0.99 77% Tiburcio S / D 2.77 68% Tiburcio Mid Cerebral Artery: normal PI 1.96 53% Ebbing PS 51.44 cm/s PS 0.99 MoM CPR PI 1.98 23% Ebbing Impression ========= Single, live intrauterine at 35w 2d The amniotic fluid volume is normal. The biophysical profile is 10/10. The umbilical artery Doppler is normal. The MCA Doppler is normal. Anterior placenta appears notably calcified. Follow-up ======== On NST today, contractions are q 2-5 minutes and FHR baseline started 150 and ended 130 bpm, making it difficult to distinguish if variable decelerations were present during the 40 minutes of monitoring. I advise she go to L&D for further FHR monitoring & cervix check. Pending delivery: Continue 1x-weekly BPP + Dopplers Continue 2x-weekly NST growth every 2 weeks Coding ====== Diagnoses O36.5130: Maternal care for known or suspected placental insufficiency Procedures 45847: Biophysical Profile W NST 41022: Umbilical Doppler 11203: MCA Doppler [employer] PACS Anatomical Region Laterality Modality Other 12/30/2024 10:3 2 AM CDT R Reyes Quinones MD [facility] ORDERABLES Edited Result - Final documented in this encounter Visit Diagnoses Diagnosis Ultrasound for screening for growth restriction (HCC)- Primary screening for growth retardation using ultrasonics 35 weeks gestation of (HCC) state, incidental Poor growth affecting management of mother in third trimester, single or unspecified fetus (HCC) 32 weeks gestation of ([facility]) state, incidental Ultrasound for screening for growth restriction (HCC)- Primary screening for growth retardation using ultrasonics Poor growth affecting management of mother in third trimester, single or unspecified fetus (HCC) 36 weeks gestation of ([facility]) state, incidental documented in this encounter
[2024-12-30 12:30] VITALS: BP 103/59; PULSE 62
--- OUTSIDE RECORDS SUMMARY | 2024-12-30 12:30 | XMS_ITS | Clinical Summary ---
Author Organization [facility] Address [address] [place] [address] Care Team Providers Care Blood Tester Fowl Name Role Phone Deanna Vasquez MD Primary Care Provider [phone] Allergies Active Allergy Reactions Criticality Noted Date [...] - 11/28/2024 9:48 PM CDT Hospital Encounter [facility] [address] [facility] [place] [address] Karley Cameron MD Contractions Discharge Disposition: Home [...] OF MEMBRANES NEGATIVE 11/28/2024 7:42 PM CDT [facility] VAGINAL STRUCTURE / Unknown 11/28/2024 7:05 PM CDT us Karley Cameron MD BODY FLUIDS AND STOOLS ORDERAB LES Final Result [facility] [address] [place] [address], * URINALYSIS (11/28/2024 7:05 PM CDT) COLOR (U) YELLOW 11/28/2024 7:30 PM CDT [facility] TRANSPARENCY CLEAR 11/28/2024 7:30 PM CDT [facility] SPECIFIC GRAVITY (U) 1.010 1.000 - 1.025 11/28/2024 7:30 PM CDT [facility] U PH 7.0 5.0 - 8.0 11/28/2024 7:30 PM CDT [facility] LEUKOCYTES (U) NEGATIVE NEGATIVE 11/28/2024 7:30 PM CDT [facility] NITRITES NEGATIVE NEGATIVE 11/28/2024 7:30 PM CDT [facility] PROTEIN RANDOM (U) NEGATIVE NEGATIVE 11/28/2024 7:30 PM CDT [facility] GLUCOSE (U) NEGATIVE NEGATIVE 11/28/2024 7:30 PM CDT [facility] KETONES MG/DL (U) NEGATIVE NEGATIVE 11/28/2024 7:30 PM CDT [facility] UROBILINOGEN 0.2 <1.0 EU/DL 11/28/2024 7:30 PM CDT [facility] BILIRUBIN (U) NEGATIVE NEGATIVE 11/28/2024 7:30 PM CDT [facility] BLOOD (U) NEGATIVE NEGATIVE 11/28/2024 7:30 PM CDT [facility] WBC/HPF 0-5 0 - 5 /HPF 11/28/2024 7:30 PM CDT [facility] RBC/HPF 0-5 0 - 5 /HPF 11/28/2024 7:30 PM CDT [facility] URINE SPECIMEN OBTAINED BY CLEAN CATCH PROCEDURE / Unknown 11/28/2024 7:05 PM CDT us Karley Cameron MD URINE ORDERABLES Final Result [facility] [address] [place] [address], from Last 3 Months Insurance [facility] Care Teams Blood Tester Fowl Relationship Specialty Start Date End Date Deanna Vasquez MD [address] [place] [address] PCP - General FAMILY PRACTICE 11/28/24
--- OUTSIDE RECORDS SUMMARY | 2024-12-30 12:30 | XMS_ITS | Clinical Summary ---
Author Organization [facility] Address [address] [place] [address] Care Team Providers Care Veneer Drier Tailer Name Role Phone Unavailable Primary Care Provider Unavailabl e Source Comments [facility],non-owned Affiliates and Associated Physician Practices is amultiple site organization consisting of ambulatory clinics and hospital sitesin [place], [place], [place] and [place]. This disclosure is being madepursuant to the Care Everywhere program and may not contain all information available regarding this patient. Last updated 18.[facility] Allergies Active Allergy Reactions Criticality Noted Date Comments Paroxetine Urticaria Medium 12/01/2024 Tramadol Nausea and/or Vomiting 12/01/2024 Encounters Date Type Department Care Team Description 12/30/2024 9:45 AM CDT Hospital Encounter [facility] Care [address] [place] [phone] Jed Kathleen MD 12/23/2024 9:42 AM CDT - 12/23/2024 11:59 PM CDT Hospital Encounter [facility] Care [address] [place] [address] Fortino Be MD Discharge Disposition: Home or Self Care 12/16/2024 10:30 AM CDT - 12/16/2024 11:59 PM CDT Hospital Encounter [facility] M[facility] & Care [address] [place] [address] Yennifer Valderrama MD Discharge Disposition: Home or Self Care 12/12/2024 12:55 PM CDT - 12/12/2024 11:59 PM CDT Hospital Encounter [facility] M[facility] & Care [address] [place] [address] Fortino Be MD Discharge Disposition: Home or Self Care 12/05/2024 11:15 AM CDT - 12/05/2024 11:59 PM CDT Hospital Encounter Critical access hospital Maternal & Care [address] [place] [address] Jed Kathleen MD Discharge Disposition: Home or [...] Description 01/06/2025 7:30 AM CDT Hospital Encounter [facility] Maternal & Care [address] [place] [phone] 01/13/2025 9:45 AM CDT Appointment [facility] [address] [place] [address] 01/20/2025 10:30 AM CDT Appointment Critical access hospital Maternal & Care [address] [place] [phone] 01/27/2025 10:30 AM CDT Appointment [facility] Maternal & Care [address] [place] [address] Health Maintenance Due Date Last Done Comments [...] Diagnosis Comments BIOPHYSICAL PROFILE W T Routine 12/30/2024 10:32 AM CDT Ultrasound for screening for growth restriction (HCC) 32 weeks gestation of (HCC) BIOPHYSICAL PROFILE W T Routine 12/23/2024 10:18 AM CDT Ultrasound for screening for growth restriction (HCC) 32 weeks gestation of (HCC) BIOPHYSICAL PROFILE W T Routine 12/16/2024 11:15 AM CDT Ultrasound for screening for growth restriction (HCC) 32 weeks gestation of (HCC) BIOPHYSICAL PROFILE W T Routine 12/12/2024 2:15 PM CDT Ultrasound for screening for growth restriction (HCC) 32 weeks gestation of (HCC) SONOGRAM - COMPLETE Routine 12/05/2024 1 1:32 AM CDT Encounter for anatomic survey (HCC) Ultrasound for screening for growth restriction (HCC) 31 weeks gestation of (HCC) from Last 3 Months Results * Biophysical Profile w NST (12/30/2024 10:32 AM CDT) Only the most recent of4 resultswithin the time period is included. Linked Results Indication ======== Poor growth (FGR) History ====== OB History 3. Para 1 [id number] Lab Tests Test Date Result NIPT Low [...] for known or suspected placental insufficiency Procedures 11973: Biophysical Profile W NST 66370: Umbilical Doppler 54191: MCA Doppler [facility] [employer] PACS Anatomical Region Laterality Modality Other 12/30/2024 10:3 2 AM CDT us R Reyes Quinones MD [facility] ORDERABLES Edited Result - Final * [...] 3 lb 7 oz EFW by Hadlock ([id number]) less than expected Growth Overview Exam date GA BPD (mm) HC (mm) AC (mm) FL (mm) HL (mm) EFW (g) 12/05/2024 31w 5d 74.7 5% 273.7 <1% 256.7 6% 60.9 34% 53.7 38% 1572 10% Anatomy The following structures appear normal: Face Nose. Nasal bone. Orbits. Heart / Thorax 4-chamber view. RVOT view. LVOT view. 3-vessel view. 2-cwfsqw-dnbbgch view. Situs. Aortic arch view. Bicaval view. [...] other known or suspected poor growth Procedures 58613: Umbilical Doppler 07791: MCA Doppler 50981: Biophysical Profile W/O NST 32189: US Preg Uterus Detailed [facility] [employer] PACS Anatomical Region Laterality Modality Other 12/05/2024 11:3 2 AM CDT R Reyes Quinones MD [facility] ORDERABLES Edited Result - Final from Last 3 Months Insurance [facility]
--- OUTSIDE RECORDS SUMMARY | 2024-12-30 12:30 | XMS_ITS | Encounter Summary ---
Author Organization [facility] Address [address] [place] [address] Care Team Providers Care Charge Auditor Name Role Phone Deanna Vasquez MD Primary Care Provider [phone] Encounter Details Date Type Department Care Team (Late st Contact Info) Description 10/26/2018 Abstract SFL CONVERSION [address] [place] [address] , Generic MD Lorna Social [...] on filedocumented in this encounter Care Teams Charge Auditor Relationship Specialty Start Date End Date Deanna Vasquez MD [address] [place] [address] PCP - General FAMILY PRACTICE 11/28/24 documented as of this encounter
[2024-12-30 12:45] VITALS: BP 100/52; PULSE 61
[2024-12-30 13:00] VITALS: BP 107/59; PULSE 63
[2024-12-30 13:15] VITALS: BP 105/57; PULSE 66
--- NOTE | 2025-01-02 14:43 | PM.OBTRLD ---
OB - Triage/Final Diagnosis Visit Information Comments/Additional reasons for admission: I have assessed the risk for this patient, Fara Mckeon, and determined that she would benefit from observation care. Final Diagnosis (1) Irregular contractions: Code(s): O47.9 - False labor, unspecified Status: Acute
== END 2024-12-30 13:35 | disposition home or self-care (01) ==
PROVIDERS: Admitting Provider Obstetrics & Gynecology; Visit Provider Obstetrics & Gynecology
DX: O47.03 False labor before 37 completed weeks of gestation, third trimester (principal); Z3A.35 35 weeks gestation of pregnancy
CPT/HCPCS: G0378; G0379

== ENCOUNTER 2025-01-09 13:04 | Outpatient (RCR) | payer OTHER, SELFPAY ==
--- NOTE | ~2025-01-09 | US_ITS ---
EXAMINATION: US OB BPP wo non-stress DATE: 01/09/2025 15:22 CDT INDICATION: History of deceleration TECHNIQUE: Real-time transabdominal obstetric ultrasound. FINDINGS: No prior studies for comparison. There is a single living fetus in vertex presentation. The placenta is anterior without placenta previa. cardiac activity and movement is noted with a heart rate of 138 beats per minute. SHIMON is normal measuring 8.9 cm. Biophysical profile: breathin of 2 movement: 2 of 2 tone: 2 of 2 Amniotic flud pocket: 2 of 2 Total score: 8 of 8 IMPRESSION: 1. Single living intrauterine in vertex presentation. 2: Total biophysical profile score of 8/8. Reviewed, dictated and finalized at location O.
[2025-01-09 13:31] VITALS: BP 109/64; PULSE 74
[2025-01-09 13:45] VITALS: BP 105/58; PULSE 70
[2025-01-09 14:00] VITALS: BP 108/64; PULSE 68
[2025-01-09 15:40] VITALS: BP 109/64; PULSE 80
== END 2025-04-09 23:59 | disposition home or self-care (01) ==
LOC: ANHOBOP 13:04
PROVIDERS: PCP Family Medicine; Visit Provider Obstetrics & Gynecology
DX: O60.03 Preterm labor without delivery, third trimester (principal); Z3A.36 36 weeks gestation of pregnancy
CPT/HCPCS: 59025; 76819

== ENCOUNTER 2025-01-18 07:11 | Inpatient (IN) | payer OTHER, SELFPAY ==
[2025-01-18] VITALS (12 sets, daily range): BP systolic 104–123; BP diastolic 55–70; PULSE 60–72; RESP 15–18; TEMP 36.3–36.8; O2SAT 99–100
--- OUTSIDE RECORDS SUMMARY | 2025-01-18 07:20 | XMS_ITS | Clinical Summary ---
Author Organization [facility] Address [address] [place] [address] Care Team Providers Care Missionary Coordinator Name Role Phone Unavailable Primary Care Provider Unavailabl e Source Comments [facility],non-owned Affiliates and Associated Physician Practices is amultiple site organization consisting of ambulatory clinics and hospital sitesin [place], [place], [place] and [place]. This disclosure is being madepursuant to the Care Everywhere program and may not contain all information available regarding this patient. Last updated 18.[facility] Allergies Active Allergy Reactions Criticality Noted Date Comments Paroxetine Urticaria Medium 12/01/2024 Tramadol Nausea and/or Vomiting 12/01/2024 Active Problems Problem Noted Date Diagnosed Date Encounter for maternal care for poor growth in pacheco in third trimester 01/13/2025 Estimated Date of Delivery Comme nts Yes 02/01/2025 Based on last me nstrual period of 04/27/2024 Encounters Date Type Department Care Team Description 01/13/2025 9:45 AM CDT - 01/13/2025 11:59 PM CDT Hospital Encounter [facility] [address] [place] [id number] Radha Paz MD Discharge Disposition: Home or Self Care 01/06/2025 7:30 AM CDT - 01/06/2025 11:59 PM CDT Hospital Encounter [facility] [address] [place] [id number] Jed Kathleen MD Discharge Disposition: Home or Self Care 01/06/2025 Telephone [facility] [address] [place] [id number] Yamile Hall Appointment 12/30/2024 9:45 AM CDT - 12/30/2024 11:59 PM CDT Hospital Encounter [facility] [address] [place] [address] Jed Kathleen MD Discharge Disposition: Home or Self Care 12/23/2024 9:42 AM CDT - 12/23/2024 11:59 PM CDT Hospital Encounter [facility] [address] [place] [address] Fortino Be MD Discharge Disposition: Home or Self Care 12/16/2024 10:30 AM CDT - 12/16/2024 11:59 PM CDT Hospital Encounter [facility] [address] [place], [place] [id number] Yennifer Valderrama MD Discharge Disposition: Home or Self Care 12/12/2024 12:55 PM CDT - 12/12/2024 11:59 PM CDT Hospital Encounter [facility] [address] [place], [place] [phone] Fortino Be MD Discharge Disposition: Home or Self Care 12/05/2024 11:15 AM CDT - 12/05/2024 11:59 PM CDT Hospital Encounter [facility] [address] [place] [id number] Jed Kathleen MD Discharge Disposition: Home or [...] Sign Reading Time Taken Comments Blood Pressure 105/64 01/13/2025 10:51 AM CDT Pulse 68 01/13/2025 10:51 AM CDT Temperature - - Respiratory Rate - - Oxygen Saturation - - Inhaled Oxygen Concentration - - Weight - - Height - - Body Mass Index - - Plan of Treatment Health Maintenance Due Date Last Done Comments HEPATITIS C SCREENING 05/02/2014 DTAP/TDAP/TD VACCINES (1 - Tdap) 2015 HEPATITIS B VACCINE (1 of 3 - 19+ 3-dose series) 2015 PAP SMEAR 2017 HPV VACCINE (1 - 3-dose SCDM series) 2023 COVID-19 VACCINE (1 - 2023-2 5 season) 2024 DEPRESSION SCREENING 05/21/2024 OB-TDAP CURRENT 11/02/2024 OB-RHOGAM INJECTION 11/09/2024 INFLUENZA VACCINE (#1) 2025 ZOSTER VACCINE (1 of 2) 2046 HIV SCREENING Completed 11/06/2024 OB-ONE HOUR GLUCOSE Completed 11/06/2024 OB-GROUP B STREP SCREEN Completed 01/02/2025 HIB VACCINE Aged Out No longer eligi [...] Diagnosis Comments BIOPHYSICAL PROFILE W NST Routine 01/13/2025 9:58 AM CDT Ultrasound for screening for growth restriction (HCC) 32 weeks gestation of (HCC) BIOPHYSICAL PROFILE W NST Routine 01/06/2025 7:40 AM CDT Ultrasound for screening for growth restriction (HCC) 32 weeks gestation of (HCC) BIOPHYSICAL PROFILE W NST Routine 12/30/2024 10:32 AM CDT Ultrasound for screening for growth restriction (HCC) 32 weeks gestation of (HCC) BIOPHYSICAL PROFILE W NST Routine 12/23/2024 10:18 AM CDT Ultrasound for [...] Months Results * Biophysical Profile w NST (01/13/2025 9:58 AM CDT) Only the most recent of6 resultswithin the time period is included. Linked Results Indication ======== Poor growth (FGR) History ====== OB History 3. Para 1 [id number] Lab Tests Test Date Result NIPT Low risk, Female Maternal Assessment Physical Exam Height 160 cm, 5 ft 3 in. Weight 54 kg, 120 lb. Initial weight 44 kg, 98 lb. BMI 21.26 kg/m . Initial BMI 17.36 kg/m . Weight gain 10 kg, 22 lb Method ====== Transabdominal ultrasound, Transabdominal ultrasound examination. View: Good view ========= [place]acheco . Number of fetuses: 1 Dating ====== Date Details Gest. age ALMA LMP 04/27/2024 Cycle: regular cycle 37 w + 2 d 02/01/2025 Stated ALMA 37 w + 2 d 02/01/2025 Previous U/S 06/23/2024 GA, GA 8 w + 2 d 37 w + 3 d 01/31/2025 Assigned dating based on the LMP, selected on 12/05/2024 37 w + 2 d 02/01/2025 General Evaluation Cardiac activity present. FHR 151 bpm. Presentation: cephalic Placenta: Placental site: anterior Amniotic Fluid Assessment ==== Amount of AF: normal MVP 6.3 cm. SHIMON 13.9 cm. Q1 6.3 cm, Q2 4.3 cm, Q3 3.3 cm, Q4 0.0 cm Biophysical Profile 2: breathing movements 2: Gross body movements 2: tone 2: Amniotic fluid volume NST: reactive 02/27 Biophysical profile score Non Stress Test NST interpretation: reactive. Baseline FHR 125 bpm. Baseline variability: moderate. Accelerations: present. Decelerations: present, variable, < 30 seconds. Uterine activity: present, iregular Growth Overview Exam date GA BPD (mm) HC (mm) AC (mm) FL (mm) HL (mm) EFW (g) 12/05/2024 31w 5d 74.7 5% 273.7 <1% 256.7 6% 60.9 34% 53.7 38% 1572 10% 12/23/2024 34w 2d 79 2% 289 <1% 276.3 3% 68.2 61% 59 62% 2034 11% 01/06/2025 36w 2d 86.7 24% 308.1 2% 300.2 7% 68.7 21% 59.4 26% 2442 13% Anatomy The following structures appear normal: Abdomen Stomach. Kidneys. Bladder. Doppler Umbilical Artery: normal PI 0.80 51% Tiburcio S / D 2.24 43% Tiburcoi Mid Cerebral Artery: normal PI 2.39 96% Ebbing PS 66.35 cm/s PS 1.17 MoM Impression ========= Single, live, intrauterine at 37w 2d The amniotic fluid volume is normal. The biophysical profile is 10/10. The umbilical artery Dopplers is normal. The MCA Dopplers is normal. Comment ======== ultrasound alone cannot detect all structural, genetic, or functional , placental, or maternal abnormalities Follow-up ======== Induction scheduled for 01/20/2025. Agree with delivery as scheduled. Coding ====== Diagnoses O36.5130: Maternal care for known or suspected placental insufficiency Procedures 70082: Biophysical Profile W NST 65201: Umbilical Doppler 31050: MCA Doppler xTV PACS Anatomical Region Laterality Modality Other 01/13/2025 9:58 AM CDT R Reyes Quinones MD [facility] ORDERABLES Edited Result - Final * Sonogram [...] view: limited by late gestational age ========= Pacheco . Number of fetuses: 1 Dating ====== [...] 3 lb 7 oz EFW by Hadlock ([id number]) less than expected Growth Overview Exam date GA BPD (mm) HC (mm) AC (mm) FL (mm) HL (mm) EFW (g) 12/05/2024 31w 5d 74.7 5% 273.7 <1% 256.7 6% 60.9 34% 53.7 38% 1572 10% Anatomy The following structures appear normal: Face Nose. Nasal bone. Orbits. Heart / Thorax 4-chamber view. RVOT view. LVOT view. 3-vessel view. 2-udopge-aplvbcz view. Situs. Aortic arch view. Bicaval view. [...] other known or suspected poor growth Procedures 44890: Umbilical Doppler 58265: MCA Doppler 06308: Biophysical Profile W/O NST 46009: US Preg Uterus Detailed [facility] [employer] PACS Anatomical Region Laterality Modality Other 12/05/2024 11:3 2 AM CDT R Reyes Quinones MD [facility] ORDERABLES Edited Result - Final from Last 3 Months Insurance
--- OUTSIDE RECORDS SUMMARY | 2025-01-18 07:20 | XMS_ITS | Clinical Summary ---
Author Organization [facility] Address [address] [place] [address] Care Team Providers Care Backer Up Name Role Phone Deanna Vasquez MD Primary Care Provider [phone] Allergies Active Allergy Reactions Criticality Noted Date [...] - 11/28/2024 9:48 PM CDT Hospital Encounter [facility] [address] [facility] [place] [address] Karley Cameron MD Contractions Discharge Disposition: Home [...] OF MEMBRANES NEGATIVE 11/28/2024 7:42 PM CDT [facility] VAGINAL STRUCTURE / Unknown 11/28/2024 7:05 PM CDT us Karley Cameron MD BODY FLUIDS AND STOOLS ORDERAB LES Final Result [facility] [address] [place] [address], * URINALYSIS (11/28/2024 7:05 PM CDT) COLOR (U) YELLOW 11/28/2024 7:30 PM CD[address] [facility] TRANSPARENCY CLEAR 11/28/2024 7:30 PM CDT [facility] SPECIFIC GRAVITY (U) 1.010 1.000 - 1.025 11/28/2024 7:30 PM CDT [facility] U PH 7.0 5.0 - 8.0 11/28/2024 7:30 PM CDT [facility] LEUKOCYTES (U) NEGATIVE NEGATIVE 11/28/2024 7:30 PM CDT [facility] NITRITES NEGATIVE NEGATIVE 11/28/2024 7:30 PM CDT [facility] PROTEIN RANDOM (U) NEGATIVE NEGATIVE 11/28/2024 7:30 PM CDT [facility] GLUCOSE (U) NEGATIVE NEGATIVE 11/28/2024 7:30 PM CDT [facility] KETONES MG/DL (U) NEGATIVE NEGATIVE 11/28/2024 7:30 PM CDT [facility] UROBILINOGEN 0.2 <1.0 EU/DL 11/28/2024 7:30 PM CDT [facility] BILIRUBIN (U) NEGATIVE NEGATIVE 11/28/2024 7:30 PM CDT [facility] BLOOD (U) NEGATIVE NEGATIVE 11/28/2024 7:30 PM CDT [facility] WBC/HPF 0-5 0 - 5 /HPF 11/28/2024 7:30 PM CDT [facility] RBC/HPF 0-5 0 - 5 /HPF 11/28/2024 7:30 PM CDT [facility] URINE SPECIMEN OBTAINED BY CLEAN CATCH PROCEDURE / Unknown 11/28/2024 7:05 PM CDT us Karley Cameron MD URINE ORDERABLES Final Result [facility] [address] [place] [address], from Last 3 Months Insurance [facility] Care Teams Backer Up Relationship Specialty Start Date End Date Deanna Vasquez MD [address] [place] [address] PCP - General FAMILY PRACTICE 11/28/24
[2025-01-18] MEDS: OXYTOCIN 30 UNITS/NS 500 ML 30 UNITS/500 ML BAG 999 UNITS IV CONT (07:30)
--- NOTE | 2025-01-18 07:42 | WPDHPUPDATE1 ---
History and Physical Update Update Date/Time: 01/18/25 07:42 History and Physical has been reviewed, including an updated exam of the patient. There are NO changes in the patient's condition. Risks, benefits, and alternatives have been discussed and questions answered. Patient agrees to proceed with procedure.
--- NOTE | 2025-01-18 07:42 | PM.OBPRVD ---
OB - Vaginal Delivery Note Procedure Delivery date: 01/18/25 Induction method: None Delivery monitor: External FHT and External Uterine Route of delivery: Episiotomy description: None Laceration Description: None Specimen: No Quantitative Blood Loss (ml): 150 Anesthesia type: None Disposition: Floor Complications: No immediate complications
[2025-01-18 08:13] LABS: Hematocrit 42.2 % (37.0-47.0); Hemoglobin 13.7 g/dL (12.0-15.0); Immature Granulocyte Percent A 2.0 % (0-0.5); Lymphocytes Absolute Auto 1.99 K/mm3 (0.9-3.2); Mean Corpuscular HGB Conc 32.5 g/dl (32-36); Mean Corpuscular Hemoglobin 32.5 pg (26-34); Mean Corpuscular Volume 100.0 fl (80-100); Nucleated Red Blood Cells Absolute Auto 0.000 K/mm3 (0.0-0.012); Nucleated Red Blood Cells Perc 0.0 % (0.0-0.2); Platelet Count Result 166 k/mm3 (150-375); Red Blood Count 4.22 M/mm3 (4.2-5.4); White Blood Count 10.8 K/mm3 (4.5-10.0)
[2025-01-18] MEDS: IBUPROFEN 600 MG TABLET PO ×2 (08:40→20:21)
[2025-01-18] MEDS: BENZOCAINE 20% AER SPR (*SP) 56 GM CAN 1 SPRAY TOPICAL (08:41)
[2025-01-18] MEDS: WITCH HAZEL 40 PADS 1 PAD TOPICAL (08:41)
[2025-01-18 08:50] LABS: Syphilis IgG/IgM Antibody Non-Reactive (Nonreactive)
[2025-01-18] MEDS: methylPREDNISolone (MEDROL) DOSEPACK 4 MG TABLETS PO (18:21)
[2025-01-19 05:00] VITALS: BP 103/59; PULSE 62; RESP 16; TEMP 36.6; O2SAT 99
[2025-01-19 05:16] LABS: Hematocrit 36.3 % (37.0-47.0); Hemoglobin 11.8 g/dL (12.0-15.0)
--- NOTE | 2025-01-19 06:23 | PM.OBPNVD ---
OB - PN: Subj Subjective Date/time seen: 01/19/25 06:23 Patient comments: no complaints, pain well controlled, incisional pain, tolerating diet and flatus present OB - PN: Obj Data Labs 01/19/25 05:08 Labs: Laboratory Results - last 24 hr 01/18/25 01/19/25 08:08 05:08 WBC 10.8 H RBC 4.22 Hgb 13.7 11.8 L Hct 42.2 36.3 L MCV 100.0 MCH 32.5 MCHC 32.5 RDW 11.9 Plt Count 166 MPV 10.8 H Immature Gran % (Auto) 2.0 H Neut % (Auto) 68.6 Lymph % (Auto) 18.5 [place] % (Auto) 10.0 H Eos % (Auto) 0.4 Baso % (Auto) 0.5 Lymph # (Auto) 1.99 [place] # (Auto) 1.1 H Eos # (Auto) 0.0 Baso # (Auto) 0.1 Abs Immat Gran (auto) 0.22 H Absolute Neuts (auto) 7.4 H Absolute Nucleated RBC 0.000 Nucleated RBC % 0.0 Syphilis IgG/IgM Ab Non-reactive Blood Type O Positive Antibody Screen Negative OB - PN A/P Plan day: 1 Plan: routine care Comments: No problems, routine care Time Spent With Patient Time: Total time spent is greater than 50% in coordination of care (as documented) at patient's floor/unit and/or counseling patient: Exam Const: General: comfortable, no acute distress and alert Resp: Effort & Inspection: normal respiratory effort Auscultation: no crackles, no rales and no rhonchi Cardio: Rate: regular rate Heart sounds: no click, no murmurs and no rubs GI: Inspection: non-distended GI Palp: No Tenderness to palpation present (GI) Auscultation: normal bowel sounds Other: Incision - CDI Extrem: General: normal to inspection, no pedal edema and no calf tenderness
--- NOTE | 2025-01-19 06:54 | P.DS_ITS ---
DS: Admitting Diagnosis Discharge Date 01/19/2025 Admitting Diagnosis Term DS: Discharge Diagnosis Discharge Diagnosis (1) Term delivered: Code(s): O80 - Encounter for full-term uncomplicated delivery Status: Acute OB - DS: Summary OB Procedures : None OB Procedures Intrapartum: Spontaneous Vag Delivery OB Procedures: : None Peripartum Data Laceration Description: None Episiotomy description: None Time Spent with Patient Time attestation: Total time spent providing and/or coordinating discharge services: DS: Data Data Completed and Pending Labs on day of discharge: Labs from last 24 hours 01/19/25 01/18/25 05:08 08:08 WBC 10.8 H RBC 4.22 Hgb 11.8 L 13.7 Hct 36.3 L 42.2 MCV 100.0 MCH 32.5 MCHC 32.5 RDW 11.9 Plt Count 166 MPV 10.8 H Immature Gran % (Auto) 2.0 H Neut % (Auto) 68.6 Lymph % (Auto) 18.5 [place] % (Auto) 10.0 H Eos % (Auto) 0.4 Baso % (Auto) 0.5 Lymph # (Auto) 1.99 [place] # (Auto) 1.1 H Eos # (Auto) 0.0 Baso # (Auto) 0.1 Abs Immat Gran (auto) 0.22 H Absolute Neuts (auto) 7.4 H Absolute Nucleated RBC 0.000 Nucleated RBC % 0.0 Syphilis IgG/IgM Ab Non-reactive Blood Type O Positive Antibody Screen Negative Discharge Plan Discharge Discharging Clinician: Ortega Quinones Patient Disposition: Home Activity: pelvic rest Diet: regular Patient Instructions: Antibiotic Form Patient Language: Divehi Stand Alone Forms: General Discharge Information Follow-up/Referrals: Ortega Quinones MD [Physician, [facility]] Discharge Medications: Continued M- Plus 27 mg iron- 1 mg tablet Date of admission: 01/18/25 07:11 Primary Care Provider: Deanna Vasquez Admitting Provider: Berhane Crews Attending physician on admission: Berhane Crews Condition: Stable
[2025-01-19 07:40] VITALS: BP 110/59; PULSE 61; RESP 16; TEMP 36.5; O2SAT 99
[2025-01-19] MEDS: methylPREDNISolone (MEDROL) DOSEPACK 4 MG TABLETS PO (09:49)
[2025-01-19] MEDS: MULTIVIT/MIN/PREN/FOL AC/IRON TABLET 1 TAB PO (09:49)
--- NOTE | 2025-01-19 12:30 | PC.NURSE ---
Introductions were made, then consulted with patient to assess needs related to . Discussed with mother her?plans to feed?her and the?experience so far. Mom feels that baby is latching and nursing well. We reviewed listening for swallows and nutritive vs. nonnutritive sucking. had a 6% weight loss in the first day of life so it was recommended to mom that she supplement after . She supplemented with her first child as well and is comfortable to offer formula after feeds. Patient has a breast pump at home and knows that we have a pump available if she chooses to initiate pumping while in the hospital. Discussed that as long as baby is stimulating the breast regularly with effective feedings, she does not have to pump at this time. Resources provided for inpatient and outpatient services with the feeding sheet, mom/baby guide and name written on the communication board. Mother voiced understanding of information and will call if there is a request for assistance. Reported to the Primary RN.
[2025-01-19] MEDS: WITCH HAZEL 40 PADS 1 PAD TOPICAL (16:16)
[2025-01-19] MEDS: IBUPROFEN 600 MG TABLET PO (16:17)
[2025-01-19 19:46] VITALS: BP 113/70; PULSE 59; RESP 16; TEMP 36.8; O2SAT 100
[2025-01-20 07:35] VITALS: BP 115/72; PULSE 78; RESP 18; TEMP 37.4; O2SAT 100
[2025-01-20] MEDS: MULTIVIT/MIN/PREN/FOL AC/IRON TABLET 1 TAB PO (08:10)
[2025-01-20] MEDS: IBUPROFEN 600 MG TABLET PO (08:13)
--- NOTE | 2025-01-20 11:32 | PC.NURSE ---
Patient viewed the discharge video Mother & Baby Care, The First Two Weeks. Patient was given the opportunity and encouraged to ask questions. Patient verbalized understanding of information shared and has been given the mother/baby guide for home reference.
--- NOTE | 2025-01-20 13:29 | P.PNOB_ITS ---
OB - PN: Subj Subjective Date/time seen: 01/20/25 13:29 Interval history: PPD#2 s/p Doing well, pain minimal Tolerating general diet Voiding without issue OB - PN: Obj Data Labs 01/19/25 05:08 OB - PN A/P Assessment and Plan (1) Term delivered: Code(s): O80 - Encounter for full-term uncomplicated delivery Status: Acute Plan day: 2 Plan: routine care and discharge home Time Spent With Patient Time: Total time spent is greater than 50% in coordination of care (as documented) at patient's floor/unit and/or counseling patient: Review of Systems 2 Review of Systems: All systems reviewed & are unremarkable except as noted in HPI and below Exam 2 Const: General: comfortable and no acute distress O rientation/consciousness: patient oriented x3 Resp: Effort & Inspection: normal respiratory effort
--- NOTE | 2025-01-20 13:31 | P.DS_ITS ---
DS: Admitting Diagnosis Discharge Date 01/20/25 Admitting Diagnosis labor DS: Discharge Diagnosis Discharge Diagnosis (1) Term delivered: Code(s): O80 - Encounter for full-term uncomplicated delivery Status: Acute OB - DS: Summary OB Procedures : None OB Procedures Intrapartum: Spontaneous Vag Delivery OB Procedures: : None Peripartum Data Laceration Description: None Episiotomy description: None Time Spent with Patient Time attestation: Total time spent providing and/or coordinating discharge services: Discharge Plan Discharge Attending physician on discharge: Berhane Crews Discharging Clinician: Ortega Quinones Patient Disposition: Home Activity: may shower, as tolerated and pelvic rest Diet: regular Discharge Instructions: Education: Mom and Baby Guide Given to: Mother Follow-Up: Call your delivering provider's office for an appointment to be seen in: call for appointment Mom and baby should come to the [facility] for the follow-up appointment. Appointment Date/Time: January 21, 2025 at 10:00 am What to expect at your follow-up visit: Physical Assessment Call [phone] if you are unable to keep your appointment time. BREAST CARE: * Wear a snug supportive bra. * For engorgement discomfort: Breast Feeding: * Apply warm moist washcloths * Express milk as needed to relieve engorgement * Wear loose clothing * For sore nipples: * Identify correct latch-on * Apply warm moist washcloths before and after nursing * Air dry nipples after nursing * May apply Lansinoh cream to nipples EPISIOTOMY/PERINEAL CARE: * Until bleeding stops, use your freda bottle after urinating * Change your pad frequently throughout the day * No tub baths until seen by your physician - You may shower ACTIVITY: * Rest as much as possible. * Do not exercise or lift anything heavier than your baby (such as laundry or other children.) * Avoid stairs or driving as much as possible. * Do not put anything into the vagina. No douching, tampons, or sexual activity until seen by physician. NOTIFY PHYSICIAN IF YOU HAVE ANY QUESTIONS OR IF ANY OF THE FOLLOWING SYMPTOMS O CCUR: * If your perineum becomes red, swollen, or more painful than what you have experienced in the hospital. * If your vaginal bleeding becomes foul smelling. * If your vaginal bleeding becomes more heavy than a period or if your bleeding changes from pink to bright red. However, you may pass an occasional walnut- sized clot once or twice for the first week . * If you experience a sharp, shooting pain in you calves. * If you discover a hard, reddened area on your breast or if you experience flu- like symptoms. DIET: * Eat regular, well-balanced meals. * Drink plenty of fluids daily. If , drink to thirst. Patient Language: Palestinian Stand Alone Forms: General Discharge Information Follow-up/Referrals: Ortega Quinones MD [Physician, UNDERWRITING SUPPORT SPECIALIST] Discharge Medications: Continued M-Fran Plus 27 mg iron- 1 mg tablet Date of admission: 01/18/25 07:11 Primary Care Provider: Deanna Vasquez Admitting Provider: Berhane Crews Attending physician on admission: Berhane Crews Condition: Stable
--- NOTE | 2025-01-20 14:36 | PC.NURSE ---
1405. Reviewed standard discharge information with patient including monitoring for required output, transition of stools, feeding 8-12 times every 24 hours, milk production, and follow up at [place] and with career coordinator in the first week of life. Mom states she is continuing with her plan of pumping and feeding formula and breast milk. Mom declines the need for a WIC referral. Parents are encouraged to take the feeding log and continue to track feedings and output for the first week . Offered outpatient resources with WIC referral and Services at [place]. Patient has the Mom/Baby Guide for further education and reference for common concerns, phone numbers, and guidance on when to call the doctor. A feeding plan was added to the infant?s discharge plan. Patient states that she has no further questions or concerns regarding .???
[2025-01-21 10:30] VITALS: BP 106/69; PULSE 71; RESP 18; TEMP 37.3; O2SAT 100
== END 2025-01-20 14:14 | disposition home or self-care (01) | DRG 807 ==
LOC: ANHLDR 07:17 → ANHOB2 11:02
PROVIDERS: Admitting Provider Obstetrics & Gynecology; PCP Family Medicine; Visit Provider Obstetrics & Gynecology
DX: O62.3 Precipitate labor (principal); Z37.0 Single live birth; Z3A.38 38 weeks gestation of pregnancy; O36.5930 Maternal care for other known or suspected poor fetal growth, third trimester, not applicable or unspecified
CPT/HCPCS: 36415; 85014; 85018; 85025; 86593; 86850; 86900; 86901; A9270; J2590